=== PATIENT | female | born 1995 | race Caucasian/White ===

== ENCOUNTER → 2018-07-15 14:07 | Outpatient (CLI) | payer MEDICAID, SELFPAY ==
[2018-07-15 14:04] VITALS: BMI 41.0
[2018-07-15 14:53] LABS: Absolute Lymphocyte Count 2.04 X10^3/ul (0.83-4.51); Absolute Neutrophil Count 8.6 X10^3/uL (2.0-7.7); Basophil# 0.02 X10^3/uL; Basophil% 0.2 % (0-1); Eosinophil# 0.06 X10^3/uL; Eosinophils% 0.5 % (0-5); Hematocrit 41.8 % (37-47); Hemoglobin 13.7 g/dl (12.0-15.0); Lymphocyte # 2.04 X10^3/ul (4.0); Lymphocyte % 18.2 % (19-41); Mean Corp Hgb Conc 32.8 g/gl (32-36); Mean Corpuscular Hgb 30.6 pg (27.0-32.0); Mean Corpuscular Volume 93.5 fL (81-99); Mean Platelet Vol. 11.3 fl (6.2-12.0); Monocyte# 0.49 X10^3/uL; Monocyte% 4.4 % (0-10); Neutrophil # 8.57 X10^3/uL (2.7-7.7); Neutrophil % 76.5 % (47-70); Platelet Count 259 K/mm3 (150-450); RBC Distribution Width CV 14.1 % (11.6-14.6); RBC Distribution Width SD 46.5 fl (35.1-43.9); Red Blood Count 4.47 M/mm3 (4.2-5.4); White Blood Count 11.2 K/mm3 (4.4-11.0)
[2018-07-15 14:56] LABS: POSITIVE COUNT NO; POSITIVE DIFFERENTIAL NO; POSITIVE MORPHOLOGY NO
[2018-07-15 15:09] LABS: Glucose Challenge Gest 1H 50g 107 mg/dL (70-140)
[2018-07-15 16:15] LABS: HIV - WCH Non-Reactive (Nonreactive); Rubella IgG 16.8 IU/mL
[2018-07-15 17:32] LABS: Chlamydia Trachomatis by PCR Negative (Negative); Neisserai gonorrhoeae by PCR Negative (Negative); Probe Check PASS; Sample Adequacy Control PASS; Specimen Processing Control PASS
[2018-07-17 10:18] LABS: HEPATITIS B SURFACE AG Negative (Negative)
[2018-07-17 20:17] LABS: HPV Reflexed? NOT INDICATED
[2018-07-19 01:31] LABS: Rapid Plasmin Reagin (RPR) NONREACTIVE (NONREACTIVE)
== END ==
LOC: PAVLAB 14:12 → LABSPEC 15:00
PROVIDERS: Referring Provider Obstetrics & Gynecology; Visit Provider Obstetrics & Gynecology
DX: Z34.90 Encounter for supervision of normal pregnancy, unspecified, unspecified trimester (principal); Z12.4 Encounter for screening for malignant neoplasm of cervix
CPT/HCPCS: 36415; 82950; 85025; 86592; 86703; 86762; 86850; 86900; 87086; 87088; 87340; 87491; 87591; 87624; 88175; G0145

== ENCOUNTER → 2018-08-15 11:54 | Outpatient (CLI) | payer MEDICAID, SELFPAY ==
[2018-08-12 14:42] VITALS: BMI 41.0
== END ==
PROVIDERS: Referring Provider Nurse Practitioner Women's Health; Visit Provider Nurse Practitioner Women's Health
DX: Z34.82 Encounter for supervision of other normal pregnancy, second trimester (principal)
CPT/HCPCS: 36415

== ENCOUNTER 2018-11-04 08:37 | Emergency (ER) | payer MEDICAID, SELFPAY ==
[2018-10-18 14:33] VITALS: BMI 41.0
[2018-11-04 08:37] VITALS: BP 128/75; PULSE 102; RESP 17; TEMP 36.6; O2SAT 100; BMI 40.3
--- NOTE | 2018-11-04 09:13 | ED.VISSUMM ---
- ER Visit Summary Date of Service: 11/04/18 Chief Complaint: Abscess on buttock crease History of Present Illness: The patient is a 23 F currently 2425 weeks due date 02/19/2019. No other significant past medical or surgical history. Patient thinks she has an abscess on her buttock crease for the last 5 days. Increasing in size and pain. Denies any other fever or other symptoms. Physical Examination: Young female no acute distress. Vital signs are stable and afebrile. H EENT exam unremarkable. Lungs clear to auscultation. Heart regular rhythm no murmur. Abdomen soft and nontender. Gravid uterus. She is moving all 4 extremities. No edema. Back nontender. On the very anterior aspect of her buttock crease there is a 1 to 2cm area that is tender to palpation it is either an abscess or pilonidal cyst. It is fluctuant. There is no surrounding cellulitis. Currently no drainage. Neurologically she is awake and alert. Test Results: None Emergency Department Course and Treatment: Let will be applied to the area. Locally anesthetized with plain 1% lidocaine. Incised and drained using 11 blade scalpel. A 1 cm incision was able to express about 3 cc of pus and blood. Patient tolerated well. Wound was probed. And I placed about 3 inches of half-inch iodinated packing gauze. Instructed on wound care. Remove the gauze in 4 days. Even her first dose of Bactrim and Keflex here prior to discharge Treatment Plan: Bactrim p.o. for 10 days. Twice daily. Keflex for 10 days 4 times daily. Tylenol Motrin for pain. Warm soaks. Disposition: discharge Impression: Acute buttock abscess Incision and drainage by ER This note was generated with [employer] dictation software. It may contain incorrect words, spelling, and punctuation that were not noted in review of the chart prior to signing ED Disposition - Plan for ED Patient: Referrals: Care Physician,No Primary [Primary Care Provider] -
[2018-11-04] MEDS: Lidocaine/Epi/Tetracaine 50 ML 1 APPLIC TOPICAL (09:22)
--- NOTE | 2018-11-04 11:38 | ED.DEP ---
ED Disposition - Plan for ED Patient: Disposition: Home or Assisted Living Instructions: ABSCESS, Incision and Drainage Prescriptions: Sulfamethoxazole/Trimethoprim [Bactrim Ds Tablet] 1 ea PO BID #20 tab Prescription Printed Cephalexin [Keflex] 500 mg PO Q6 #40 cap Prescription Printed Referrals: Miles Monsivais MD [NON-STAFF] - 3-5 Days Additional Instructions: Warm soaks twice a day for 20 minutes. Tylenol and Motrin for pain. Keflex 1 pill 4 times a day for 10 days. Bactrim 1 pill twice a day for 10 days. Follow-up with your doctor this week. Pull the packing gauze out in 4 days on . If it falls out before that do not worry about it.
[2018-11-04 11:55] VITALS: BP 135/81; PULSE 71; RESP 15; O2SAT 98
[2018-11-04] MEDS: Smz/Tmp Ds Tablet 1 TABLET PO (11:56)
[2018-11-04] MEDS: Cephalexin 250 MG Capsule 500 MG PO (11:56)
== END 2018-11-04 12:03 | disposition home or self-care (01) ==
PROVIDERS: Emergency Provider Emergency Medicine
DX: O99.89 Other specified diseases and conditions complicating pregnancy, childbirth and the puerperium (principal); L02.31 Cutaneous abscess of buttock; Z3A.00 Weeks of gestation of pregnancy not specified
CPT/HCPCS: 10061; 99284

== ENCOUNTER → 2018-11-19 16:49 | Outpatient (CLI) | payer MEDICAID, SELFPAY ==
[2018-11-19 15:44] VITALS: BMI 40.3
[2018-11-19 17:22] LABS: Absolute Lymphocyte Count 1.98 X10^3/ul (0.83-4.51); Absolute Neutrophil Count 10.9 X10^3/uL (2.0-7.7); Basophil# 0.02 X10^3/uL; Basophil% 0.1 % (0-1); Eosinophil# 0.06 X10^3/uL; Eosinophils% 0.4 % (0-5); Hematocrit 36.2 % (37-47); Lymphocyte # 1.98 X10^3/ul (4.0); Lymphocyte % 14.6 % (19-41); Mean Corp Hgb Conc 33.1 g/gl (32-36); Mean Corpuscular Hgb 31.4 pg (27.0-32.0); Mean Corpuscular Volume 94.8 fL (81-99); Mean Platelet Vol. 11.1 fl (6.2-12.0); Monocyte# 0.65 X10^3/uL; Monocyte% 4.8 % (0-10); Neutrophil # 10.85 X10^3/uL (2.7-7.7); Neutrophil % 79.8 % (47-70); Platelet Count 274 K/mm3 (150-450); RBC Distribution Width CV 13.7 % (11.6-14.6); RBC Distribution Width SD 45.2 fl (35.1-43.9); Red Blood Count 3.82 M/mm3 (4.2-5.4); White Blood Count 13.6 K/mm3 (4.4-11.0)
[2018-11-19 17:23] LABS: POSITIVE COUNT NO; POSITIVE DIFFERENTIAL NO; POSITIVE MORPHOLOGY NO
[2018-11-19 17:37] LABS: Glucose Challenge Gest 1H 50g 113 mg/dL (70-140)
== END ==
PROVIDERS: Referring Provider Obstetrics & Gynecology; Visit Provider Obstetrics & Gynecology
DX: O09.90 Supervision of high risk pregnancy, unspecified, unspecified trimester (principal); Z3A.00 Weeks of gestation of pregnancy not specified
CPT/HCPCS: 36415; 82950; 85025

== ENCOUNTER → 2018-12-24 12:19 | Outpatient (CLI) | payer MEDICAID, SELFPAY ==
[2018-12-10 16:17] VITALS: BMI 40.3
--- NOTE | 2018-12-24 12:21 | US_ITS ---
STUDY: SECOND AND THIRD TRIMESTER OBSTETRICAL ULTRASOUND - LIMITED REASON FOR EXAM: Female, 23 years old. Routine survey. LMP: Asif second 2018. PRIOR ULTRASOUND: None. TECHNIQUE: Transabdominal TECHNICAL QUALITY: Adequate. FINDINGS: There is a single intrauterine fetus. The fetus is in a cephalic presentation. There is demonstrated cardiac activity with a heart rate of 152 bpm. There is a normal amniotic fluid volume. The largest amniotic fluid pocket measures 5.8 x 3.2 cm. The amniotic fluid index (CASEY) is 18.31 cm. The placenta is anterior in location and is not low lying. There are Grade 1 placental changes. The cervix measures 3.2 cm cm in length. BIOMETRY: BPD: 7.8 cm: 31 weeks, 3 days HC: 29.11 cm: 32 weeks, 1 days AC: 28.19 cm: 32 weeks, 2 days FL: 6.18 cm: 32 weeks, 1 days Age by LMP: 31 weeks, 6 days. KATLYN by LMP: February 19, 2019. age by prior US: 31 weeks, 2 days. KATLYN by prior US: February 13, 2019. age by current US: 32 weeks, 0 days. KATLYN by current US: February 18, 2019. Estimated weight: 1897 grams, +/- 277 grams, 46 percentile. US/OB Limited With Biometrics IMPRESSION: Single live intrauterine gestation with a mean gestational age of 31 weeks and 2 days. The measurements obtained today fall within the normal expected range. Electronically Signed: Ethan Kendrick, at 15:50 EDT , Service support ,
== END ==
PROVIDERS: Referring Provider Obstetrics & Gynecology; Visit Provider Obstetrics & Gynecology
DX: O09.90 Supervision of high risk pregnancy, unspecified, unspecified trimester (principal); O99.210 Obesity complicating pregnancy, unspecified trimester; O99.330 Smoking (tobacco) complicating pregnancy, unspecified trimester; Z3A.31 31 weeks gestation of pregnancy
CPT/HCPCS: 76816

== ENCOUNTER 2019-01-07 16:35 | Outpatient (CLI) | payer MEDICAID, SELFPAY ==
[2019-01-07 15:33] VITALS: BMI 41.6
[2019-01-07 16:52] VITALS: BMI 41.7
[2019-01-07] MEDS: Dextrose 5%-Lactated Ringers 1,000 ML 999 ML IV (17:06)
[2019-01-07 17:18] LABS: Color, Urine Yellow (Yellow); Glucose, Dipstick Normal (Normal); Leukocyte Esterase-Dipstick 25 /ul (Negative); Nitrite-Dipstick Negative (Negative); Occult Blood-Urine Negative /ul (Negative); Protein-Dipstick 30 mg/dl (Negative); Specific Gravity, Urine 1.015 (1.002-1.030); Urine Clarity Cloudy (Clear); Urine Urobilinogen 1 mg/dl (Normal); Urine pH 6.5 (5.0 - 8.0)
[2019-01-07 17:22] LABS: Absolute Lymphocyte Count 2.17 X10^3/uL (0.83-4.51); Absolute Neutrophil Count 12.7 X10^3/uL (2.0-7.7); Basophil# 0.02 X10^3/uL; Basophil% 0.1 % (0-1); Eosinophil# 0.03 X10^3/uL; Eosinophils% 0.2 % (0-5); Hematocrit 37.4 % (37-47); Hemoglobin 12.5 g/dL (12.0-15.0); Lymphocyte # 2.17 X10^3/ul (4.0); Lymphocyte % 13.8 % (19-41); Mean Corp Hgb Conc 33.4 g/dL (32-36); Mean Corpuscular Hgb 31.5 pg (27.0-32.0); Mean Corpuscular Volume 94.2 fL (81-99); Mean Platelet Vol. 11.1 fl (6.2-12.0); Monocyte% 4.5 % (0-10); NRBC Flagged by Analyzer 0 % (0-5); Neutrophil % 80.7 % (47-70); Platelet Count 266 K/mm3 (150-450); RBC Distribution Width CV 12.7 % (11.6-14.6); Red Blood Count 3.97 M/mm3 (4.2-5.4); White Blood Count 15.7 K/mm3 (4.4-11.0)
[2019-01-07 17:24] LABS: Ketone-Dipstick 150 mg/dl (Negative); Urine Bilirubin Dipstick 1 mg/dL (Negative)
[2019-01-07 17:41] LABS: ALB/GLOB Ratio 0.6 RATIO (0.9-2.4); AST(SGOT) 11 U/L (15-37); Alanine Aminotransfer ALT/SGPT 18 U/L (13-56); Albumin, Serum 2.7 g/dL (3.2-5.0); Alkaline Phosphatase 81 U/L (45-117); Anion Gap 7 (5-15); BUN 7 mg/dL (7-18); BUN/Creat Ratio 10.5 RATIO (10-20); Calcium,Total 8.9 mg/dL (8.5-10.1); Chloride 107 mmol/L (98-107); Creatinine, Serum 0.67 mg/dL (0.55-1.02); EST Glomerular Filtration Rate 114 mL/min (>60); Est Glom Filt Rate - Afr Amer 137 mL/min (>60); Estimated Creatinine Clearance 120.16 ml/min; Globulin 4.5 g/dL (2.2-4.2); Glucose 82 mg/dL (74-106); Potassium 3.6 mmol/L (3.5-5.1); Protein, Total 7.2 g/dL (6.4-8.2); Sodium Level 137 mmol/L (136-145)
[2019-01-07] MEDS: Dextrose 5%-Lactated Ringers 1,000 ML 200 ML IV (17:43)
[2019-01-07 17:48] LABS: Mucous, Urine 3+ /hpf (<or=2+); Squamous Epithelial Cells - UA 0-5 SEEN /hpf (5-10)
[2019-01-07 17:49] LABS: Hyaline Cast 0-5 SEEN /lpf (0-5)
[2019-01-07 17:50] LABS: Bacteria RARE /hpf (None Seen); Calcium Oxalate Crystals Ur RARE /hpf (<or=2+); White Blood Cells 0-5 SEEN /hpf (0-5)
[2019-01-07 17:51] LABS: Red Blood Cells-Urine 0-5 SEEN /hpf (0-5)
--- NOTE | 2019-01-08 05:38 | OB.TRI.HP_ITS ---
- Problem List (1) Non-reactive NST (non-stress test) Status: Acute History of Present Illness Date of Service: 01/07/19 Was patient seen by the physician?: Yes Reason For Visit: EXTENDED MONITOR Final KATLYN Source: US <20 weeks Allergies No Known Allergies Allergy (Verified 01/07/19 15:36) Laboratory Studies: Laboratory Tests 01/07/19 01/07/19 01/07/19 Range/Units 16:50 16:50 16:50 WBC 15.7 H (4.4-11.0) K/mm3 RBC 3.97 L (4.2-5.4) M/mm3 Hgb 12.5 (12.0-15.0) g/dL Hct 37.4 (37-47) % MCV 94.2 (81-99) fL MCH 31.5 (27.0-32.0) pg MCHC 33.4 (32-36) g/dL RDW Std Deviation 44.0 H (35.1-43.9) fl RDW Coeff of Melvin 12.7 (11.6-14.6) % Plt Count 266 (150-450) K/mm3 MPV 11.1 (6.2-12.0) fl Immature Gran % (Auto) 0.700 (0.0-0.9) % Neut % (Auto) 80.7 H (47-70) % Lymph % (Auto) 13.8 L (19-41) % [place] % (Auto) 4.5 (0-10) % Eos % (Auto) 0.2 (0-5) % Baso % (Auto) 0.1 (0-1) % Absolute Neuts (auto) 12.7 H (2.0-7.7) X10^3/uL Absolute Lymphs (auto) 2.17 (0.83-4.51) X10^3/uL Nucleated RBC % 0 (0-5) % Sodium 137 (136-145) mmol/L Potassium 3.6 (3.5-5.1) mmol/L Chloride 107 (98-107) mmol/L Carbon Dioxide 23.0 (21.0-32.0) mmol/L Anion Gap 7 (5-15) BUN 7 (7-18) mg/dL Creatinine 0.67 (0.55-1.02) mg/dL Estim Creat Clear Calc 120.16 ml/min Est GFR (MDRD) Af Amer 137 (>60) mL/min Est GFR (MDRD) Non-Af 114 (>60) mL/min BUN/Creatinine Ratio 10.5 (10-20) RATIO Glucose 82 (74-106) mg/dL Calcium 8.9 (8.5-10.1) mg/dL Total Bilirubin 0.30 (0.20-1.00) mg/dL AST 11 L (15-37) U/L ALT 18 (13-56) U/L Alkaline Phosphatase 81 (45-117) U/L Total Protein 7.2 (6.4-8.2) g/dL Albumin 2.7 L (3.2-5.0) g/dL Globulin 4.5 H (2.2-4.2) g/dL Albumin/Globulin Ratio 0.6 L (0.9-2.4) RATIO Urine Color Yellow (Yellow) Urine Clarity Cloudy (Clear) Urine pH 6.5 (5.0 - 8.0) Ur Specific Ava 1.015 (1.002-1.030) Urine Protein 30 H (Negative) mg/dl Urine Glucose (UA) Normal (Normal) mg/dl Urine Ketones 150 H (Negative) mg/dl Urine Occult Blood Negative (Negative) /ul Urine Nitrite Negative (Negative) Urine Bilirubin 1 H (Negative) mg/dL Urine Urobilinogen 1 H (Normal) mg/dl Ur Leukocyte Esterase 25 H (Negative) /ul Urine RBC 0-5 SEEN (0-5) /hpf Urine WBC 0-5 SEEN (0-5) /hpf Ur Squamous Epith Cells 0-5 SEEN (5-10) /hpf Calcium Oxalate Crystal RARE (<or=2+) /hpf Urine Bacteria RARE (None Seen) /hpf Hyaline Casts 0-5 SEEN (0-5) /lpf Urine Mucus 3+ (<or=2+) /hpf NST - FHR Rate Baby A Baseline: 140 Variability:: Moderate Accelerations:: 15 x 15 Decelerations:: None NST Reactive:: Yes FHR Category:: Category I Uterine Activity:: irritability Impression/Plan nonreactive NST in office- extended monitoring and uterine irritatbility- reactive no decels and no labor. dc home kick counts Multi Select Codes - Urinary/Genital Urinary/Genital CPT Codes: 02556-26 non-stress test Interp
== END 2019-01-07 18:00 | disposition home or self-care (01) ==
LOC: WPOUT 16:41 → WP 01-08 10:26
PROVIDERS: Referring Provider Obstetrics & Gynecology; Visit Provider Obstetrics & Gynecology
DX: O36.8990 Maternal care for other specified fetal problems, unspecified trimester, not applicable or unspecified (principal); Z3A.00 Weeks of gestation of pregnancy not specified
CPT/HCPCS: 96365; 36415; 59025; 59050; 80053; 81001; 85025; 99218; G0378

== ENCOUNTER → 2019-01-14 17:08 | Outpatient (CLI) | payer MEDICAID, SELFPAY ==
[2019-01-14 15:34] VITALS: BMI 41.8
[2019-01-14 18:50] LABS: Protein:Creat Ratio 141 mg/g CRE (0-200)
== END ==
PROVIDERS: Referring Provider Obstetrics & Gynecology; Visit Provider Obstetrics & Gynecology
DX: O12.10 Gestational proteinuria, unspecified trimester (principal)
CPT/HCPCS: 82570; 84156

== ENCOUNTER → 2019-01-24 16:37 | Outpatient (CLI) | payer MEDICAID, SELFPAY ==
[2019-01-21 15:56] VITALS: BMI 41.8
--- NOTE | 2019-01-24 16:39 | US_ITS ---
STUDY: SECOND AND THIRD TRIMESTER OBSTETRICAL ULTRASOUND-LIMITED REASON FOR EXAM: Female, 23 years old routine survey LMP: 05/15/2018 TECHNIQUE: Transabdominal TECHNICAL QUALITY: Adequate. PRIOR ULTRASOUND: 12/24/2018 FINDINGS: There is a single intrauterine fetus. The fetus is in a cephalic presentation. There is demonstrated cardiac activity with a heart rate of 150 bpm. There is a normal amniotic fluid volume. The largest amniotic fluid pocket measures 5.9 cm. The amniotic fluid index (CASEY) is 15.3 cm. The placenta is anterior in location and is not low lying. There are Grade 3 placental changes. The cervix was not visualized BIOMETRY: BPD: 8.95 cm: 36 weeks, 2 days HC: 33.28 cm: 38 weeks, 0 days AC: 31.97 cm: 36 weeks, 0 days FL: 7.06 cm: 36 weeks, 2 days age by current US: 36 weeks, 5 days. KATLYN by current US: 02/16/2019. Estimated weight: 2883 grams, +/- 421 grams, %. age by prior US: 36 weeks, 3 days. KATLYN by prior US: 02/18/2019. Age by LMP: 36 weeks, 2 days. KATLYN by LMP: 02/19/2019. US/OB Limited With Biometrics IMPRESSION: Single live intrauterine at 36 weeks, 5 days by current ultrasound KATLYN of 02/16/2019. Heart rate 150 bpm. No suspicious sonographic findings, normal growth noted since the previous study. Electronically Signed: Guille Gutierres MD at 9:48 EDT , Service support ,
== END ==
PROVIDERS: Referring Provider Obstetrics & Gynecology; Visit Provider Obstetrics & Gynecology
DX: O99.213 Obesity complicating pregnancy, third trimester (principal); Z3A.00 Weeks of gestation of pregnancy not specified
CPT/HCPCS: 76816

== ENCOUNTER 2019-01-25 17:35 | Outpatient (CLI) | payer MEDICAID, SELFPAY ==
[2019-01-22 05:14] VITALS: BMI 40.3
[2019-01-25 17:53] VITALS: BMI 41.6
[2019-01-25 18:37] LABS: Bacteria 0 SEEN /hpf (None Seen); Color, Urine Yellow (Yellow); Glucose, Dipstick Normal (Normal); Ketone-Dipstick Negative (Negative); Leukocyte Esterase-Dipstick Negative /ul (Negative); Mucous, Urine 0 SEEN /hpf (<or=2+); Nitrite-Dipstick Negative (Negative); Occult Blood-Urine Negative /ul (Negative); Protein-Dipstick Negative (Negative); Red Blood Cells-Urine 0 SEEN /hpf (0-5); Urine Bilirubin Dipstick Negative (Negative); Urine Clarity Cloudy (Clear); Urine Urobilinogen Normal (Normal)
[2019-01-25 19:00] LABS: Amorphous Sediment 3+; Squamous Epithelial Cells - UA 0-5 SEEN /hpf (5-10)
[2019-01-25 19:02] LABS: Coarse Granular Cast 0-5 SEEN /lpf (0-5 /lpf)
[2019-01-25 19:04] LABS: Transitional Epithelial - Ur 0-5 SEEN /hpf (0-5); White Blood Cells 0-5 SEEN /hpf (0-5)
--- NOTE | 2019-01-29 04:36 | OB.TRI.HP_ITS ---
- Problem List (1) Pelvic pressure in female Status: Acute History of Present Illness Date of Service: 01/25/19 Was patient seen by the physician?: No Reason For Visit: PELVIC PRESSURE Final KATLYN Source: US <20 weeks History of Present Illness: pelvic pressure ctx Allergies No Known Allergies Allergy (Verified 01/28/19 15:45) Laboratory Studies: Laboratory Tests 01/25/19 Range/Units 18:30 Urine Color Yellow (Yellow) Urine Clarity Cloudy (Clear) Urine pH 8.0 (5.0 - 8.0) Ur Specific Reading 1.020 (1.002-1.030) Urine Protein Negative (Negative) mg/dl Urine Glucose (UA) Normal (Normal) mg/dl Urine Ketones Negative (Negative) mg/dl Urine Occult Blood Negative (Negative) /ul Urine Nitrite Negative (Negative) Urine Bilirubin Negative (Negative) mg/dL Urine Urobilinogen Normal (Normal) mg/dl Ur Leukocyte Esterase Negative (Negative) /ul Urine RBC 0 SEEN (0-5) /hpf Urine WBC 0-5 SEEN (0-5) /hpf Ur Squamous Epith Cells 0-5 SEEN (5-10) /hpf Ur Transition Epith Cell 0-5 SEEN (0-5) /hpf Amorphous Sediment 3+ Urine Bacteria 0 SEEN (None Seen) /hpf Coarse Granular Casts 0-5 SEEN (0-5 /lpf) /lpf Urine Mucus 0 SEEN (<or=2+) /hpf NST - FHR Rate Baby A Baseline: 140 Variability:: Moderate Decelerations:: Late NST Reactive:: Yes FHR Category:: Category I Uterine Activity:: irregular Impression/Plan pelvic pressure reactive nst dc home labor precuations Multi Select Codes - Urinary/Genital Urinary/Genital CPT Codes: 20811-55 non-stress test Interp
== END 2019-01-25 19:19 | disposition home or self-care (01) ==
LOC: WPOUT 17:42 → WP 17:43
PROVIDERS: Visit Provider Obstetrics & Gynecology
DX: O26.899 Other specified pregnancy related conditions, unspecified trimester (principal); R10.2 Pelvic and perineal pain; Z3A.00 Weeks of gestation of pregnancy not specified
CPT/HCPCS: 59025; 59050; 81001; 99218; G0378

== ENCOUNTER → 2019-01-28 17:40 | Outpatient (CLI) | payer MEDICAID, SELFPAY ==
[2019-01-28 15:45] VITALS: BMI 41.6
== END ==
PROVIDERS: Visit Provider Nurse Practitioner Women's Health
DX: O09.90 Supervision of high risk pregnancy, unspecified, unspecified trimester (principal); Z3A.00 Weeks of gestation of pregnancy not specified
CPT/HCPCS: 87081

== ENCOUNTER 2019-02-15 09:32 | Outpatient (CLI) | payer MEDICAID, SELFPAY ==
[2019-02-14 09:15] VITALS: BMI 41.4
[2019-02-15 09:36] VITALS: BMI 41.7
[2019-02-15 10:04] LABS: ROM Internal Control Test YES-OK TO RESULT pt. (Internal QC); ROM Patient Test Negative (Negative); Record Kit Lot#, ROM+ J8255
--- NOTE | 2019-02-17 00:59 | OB.TRI.PN ---
Progress Notes Date of Service: 02/15/19 Progress Note: Patient presents for triage evaluation secondary to tractions. Patient that she had loss of fluid for clear fluid FHT: 140 Moderate variability reactive no decelerations category I tracing [place]: Irregular contractions Assessment and plan: False labor reactive NST, reassuring maternal and status patient discharged to home to follow-up scheduled. See problem list details for additional plan information. Laboratory Studies: Laboratory Tests 02/15/19 Range/Units 09:30 Vag Amniotic Fld Detect Negative (Negative) Multi Select Codes - Urinary/Genital Urinary/Genital CPT Codes: 13268-01 non-stress test Interp
== END 2019-02-15 11:00 | disposition home health service (06) ==
LOC: WPOUT 09:33 → WP 09:34
PROVIDERS: Referring Provider Obstetrics & Gynecology; Visit Provider Obstetrics & Gynecology
DX: O47.9 False labor, unspecified (principal); Z3A.00 Weeks of gestation of pregnancy not specified
CPT/HCPCS: 59025; 59050; 84112; 99218; G0378

== ENCOUNTER 2019-02-16 23:13 | Inpatient (IN) | payer MEDICAID, SELFPAY ==
[2019-02-15 09:36] VITALS: BMI 41.7
[2019-02-16 23:45] VITALS: BMI 41.4
[2019-02-16] MEDS: Lactated Ringers 500 ML 999 ML IV (23:45)
[2019-02-16 23:59] LABS: Absolute Lymphocyte Count 2.88 X10^3/uL (0.83-4.51); Absolute Neutrophil Count 8.7 X10^3/uL (2.0-7.7); Basophil# 0.03 X10^3/uL; Basophil% 0.2 % (0-1); Eosinophil# 0.06 X10^3/uL; Eosinophils% 0.5 % (0-5); Hematocrit 35.7 % (37-47); Lymphocyte # 2.88 X10^3/ul (4.0); Lymphocyte % 23.2 % (19-41); Mean Corp Hgb Conc 33.6 g/dL (32-36); Mean Corpuscular Hgb 31.2 pg (27.0-32.0); Mean Corpuscular Volume 92.7 fL (81-99); Mean Platelet Vol. 11.1 fl (6.2-12.0); Monocyte% 5.6 % (0-10); NRBC Flagged by Analyzer 0 % (0-5); Neutrophil # 8.69 X10^3/uL (2.7-7.7); Neutrophil % 69.9 % (47-70); Platelet Count 255 K/mm3 (150-450); RBC Distribution Width CV 13.4 % (11.6-14.6); RBC Distribution Width SD 45.1 fl (35.1-43.9); Red Blood Count 3.85 M/mm3 (4.2-5.4); White Blood Count 12.4 K/mm3 (4.4-11.0)
[2019-02-17] MEDS: Lactated Ringers 1,000 ML 200 ML IV (00:15)
--- NOTE | 2019-02-17 00:40 | HP.PCM_ITS ---
- Problem List (1) Active labor at term Status: Acute (2) Influenza vaccination declined Status: Acute Comment: 02/14/2019 (3) Obesity affecting Status: Acute Qualifiers: Comment: bmi over 40, 1 tm glucola, nutrition discussed. weekly nsts and q 4 week US after 32 weeks; fu US views sufficient. testing 1x wk and daily kick counts. Normal growth/CASEY on US (4) Status: Acute Qualifiers: Comment: genetic, carrier, and ntd nl. US normal. (5) Supervision of high risk , antepartum Status: Acute Comment: PRR KATLYN 02/19/19 girl Liang Sanders Pako (6) Tobacco use affecting , antepartum Status: Acute Comment: 3/day, recommend cessation History and Physical Date of Admission: 02/17/19 Intake Vital Signs 02/14/19 Body Mass Index (BMI) 41.4 02/14/19 Height 5 ft 6 in 02/14/19 Weight: 257 lb 02/14/19 Body Mass Index (BMI) 41.4 02/14/19 Blood Pressure 128/72 H Intake Visit Reasons: est ob 39w/NST Public Health Technologist Required: No Is patient in pain?: No Allergies No Known Allergies Allergy (Verified 02/14/19 09:12) Medications Vits [Prenatabs FA] 1 tab PO DAILY 08/31/14 [History Confirmed 02/14/19] Last Menstral Period: 05/14/18 Zika: Zika virus screening: Negative : No [facility] Social History (Updated 02/14/19 @ 10:57 by Sandy Barriga MD) Smoking Status: Never smoker alcohol intake: never substance use type: does not use caffeine: Yes what type of physical activity do you participate in: walking seatbelt use: always do you feel safe at home: Yes additional social history: Taylor Gore Patient works at [employer] History 2 Elective abortions Hx Para 1 Spontaneous abortions Hx # Term Pregnancies Ectopic pregnancies Hx # Pregnancies Multiple births # of living children Past Pregnancies Del. Date Name GA/Weeks Outcome Route Bth Weight Gen Labor Lgth Anesthesia Del Locatn Provider FOB Unknown 2014 Madalynn live - full term NS VD Female [facility] Ariel Peterson HPI est ob 39w/NST: Details: PRECIOUS SUTTON is a 23 year old who presents for contractions. she is IAL 5 cm dilated. she is also ruptured with clear fluid. OB Visit KATLYN Calculator Estimated Delivery Date Method Current WG Current Estimate 02/19/19 Ultrasound #1 39w 2d Other Estimates 02/18/19 LMP (Uncertain) 39w 3d Expected Delivery Route/Plan Labor Preferences- labor support person: Pako, mom- Carin, sister in law- Bianca pain management: epidural possibly cut cord/dad catch: [] : [] PP control planned: [] discussed possible routes of delivery and associated risks: [] special requests: [] Specific Issue/Plans flu vaccine: declines tdap vaccine: given rhogam: na LARC form signed: declined Problem list reviewed and updated with the most current plan of care details and appropriate orders placed. Relevant counseling for the gestational age provided. Continue routine care and follow up unless otherwise noted in visit notes/problem list details Initial Weight: Not Recorded Date EGA Weight BP Urine Prot Glucose FHR FuHt Pres Mov CTX Dilation Effaced St Visit Note 08/12/18 12w 5d 253 lb 122/76 Negative Negative 150 no vb cramping, desires sequential screen 09/10/18 16w 6d 254 lb 2 oz 106/72 Negative Negative 162 Active Confirms FM. No VB, LOF 10/18/18 22w 2d 259 lb 6 oz 120/62 Negative Negative 156 22 Active absent Good FM. NO VB, LOF 11/19/18 26w 6d 260 lb 6 oz 138/76 Negative Negative 135 26 Active no vb lof good fm n oregular ctx cbc gct tdap 12/10/18 29w 6d 260 lb 90/64 Negative Negative 135 34 Active absent no vb lof good fm n oregular ctx 12/31/18 32w 6d 261 lb 110/84 135 no vb lof good fm no regular ctx 01/07/19 33w 6d 258 lb 122/78 160 Active frequent elevated heart rate- to l and d for evaluation. co some contractions. 01/14/19 34w 6d 259 lb 8 oz 106/60 1+ Negative 150 Active frequent irritability contractions no vb lof normal bps 01/21/19 35w 6d 100/72 140 Active frequent no vb lof 01/28/19 36w 6d 258 lb 6 oz 106/60 Negative Negative 145 37 Cephalic Active occasional 1.20 -3 No VB, LOF 02/14/19 39w 2d 257 lb 128/72 Negative Negative Visit Notes Visit Date: 02/14/19 ??No visit notes to display Visit Date: 01/28/19 ??No VB, LOF ??DINORA Hernandez on 01/28/19 Visit Date: 01/21/19 ??no vb lof ??Sandy Barriga MD on 01/22/19 Visit Date: 01/14/19 ??irritability contractions no vb lof normal bps ??Sandy Barriga MD on 01/15/19 Visit Date: 01/07/19 ??elevated heart rate- to l and d for evaluation. co some contractions. ??Sandy Barriga MD on 01/13/19 Visit Date: 12/31/18 ??no vb lof good fm no regular ctx ??Sandy Barriga MD on 01/05/19 Visit Date: 12/10/18 ??no vb lof good fm n oregular ctx ??Sandy Barriga MD on 12/10/18 Visit Date: 11/19/18 ??no vb lof good fm n oregular ctx cbc gct tdap ??Sandy Barriga MD on 11/19/18 Visit Date: 10/18/18 ??Good FM. NO VB, LOF ??DINORA Hernandez on 10/18/18 Visit Date: 09/10/18 ??Confirms FM. No VB, LOF ??DINORA Hernandez on 09/10/18 Visit Date: 08/12/18 ??no vb cramping, desires sequential screen ??Sandy Barriga MD on 08/12/18 [facility] First Trimester First Trimester: Desire for , Alcohol, Tobacco Cessation, Illicit/Recreational Drug/Substance Use, Intimate Partner Violence, Barriers to care, Unstable Housing, Communication Barriers, Environmental/Work Hazards, Anticipated Course of Care, Toxoplasmosis Precations, Use of Any medications, Sexual activity, Exercise, Dental Care, Sauna/Hot tub use, Seat Belt use, Childbirth classes/Hospital facilities, , Travel, Indications for US and Screening for Aneuploidy Second Trimester Second Trimester: Signs and Symptoms of Labor, Selecting a care provider, Reproductive Life Planning, Care Planning, Tobacco Cessation, Depression/Anxiety and Intimate Partner Violence Third Trimester Third Trimester: Pain Management Plans, Labor support person(s), Immediate Larc, Movement Monitoring and Infant Feeding Yes ; discussed Trial of Labor after Counseling or discussed Circumcision preference Diagnostics Diagnostics Diagnostics Hgb 12.5 g/dL (12.0-15.0) 01/07/19 Hct 37.4 % (37-47) 01/07/19 Details: HIV: Urine Culture: Sequential Screen: NIPT Screen: ROS Const Reports system reviewed and no additional complaints, except as docu Card Reports system reviewed and no additional complaints, except as docu Resp Reports system reviewed and no additional complaints, except as docu GI Reports system reviewed and no additional complaints, except as docu, Reports nausea Reports system reviewed and no additional complaints, except as docu Musc Reports system reviewed and no additional complaints, except as docu Exam Const General: cooperative, healthy appearing, comfortable, anxious HENMT Head: normal to inspection Nose: external nose normal Face and sinus: normal facial exam Neck Neck: normal visual inspection, full ROM, no lymphadenopathy Thyroid: thyroid normal Chest Chest palpation & inspection: normal inspection of the chest Resp Effort & Inspection: normal respiratory effort GI Inspection: normal to inspection Palpation: soft, other (gravid uterus) Other: infant vertex and appropriate size for gestational age Other: Cervical Exam: Extrem General: pedal edema Office Procedures OB NST Non-Stress Test Indications for Monitoring: Yes BMI >40 Heart Rate Baseline: 130 Heart Rate Variability: moderate Movement: Present Heart Rate Accelerations: Present Decelerations: Absent Contractions: Absent Impression: Yes Reactive Non-Stress Test Results [id number] Office Urine Glucose Negative Last Edit by Belem Jernigan on 02/14/19 09:14 Office Urine Protein Negative Last Edit by Belem Jernigan on 02/14/19 09:14 Assessment & Plan Problems 1. Supervision of high risk , antepartum O09.90 2. 39 weeks gestation of Z3A.39 3. Tobacco use affecting , antepartum O99.330 4. Obesity affecting in third trimester O99.213 5. Non-reactive NST (non-stress test) O28.8 6. Pelvic pressure in female R10.2 7. Influenza vaccination declined Z28.21 Orders Patient presents IAL admit expectant managment Pain management: plans epidural. GBS negative. Management of any complications: none I have reviewed the [facility] and made any clinically relevant updates. Orders: POC Urinalysis 2 Dip (Clinic) Today OB NST Today O09.90, O99.210, O99.330 Coding Level of Care Code Off vis,est,level 3 Diagnoses Supervision of high risk , antepartum O09.90 39 weeks gestation of Z3A.39 ??Weeks of gestation: 39 weeks Tobacco use affecting , antepartum O99.330 Obesity affecting in third trimester O99.213 ??Trimester: third trimester Non-reactive NST (non-stress test) O28.8 Pelvic pressure in female R10.2 Influenza vaccination declined Z28.21 Additional Codes Non-Stress Test (04644)
[2019-02-17] MEDS: fentaNYL-bupivacaine (epidural) 100 ML BAG EPIDURAL (00:46)
[2019-02-17] MEDS: Lactated Ringers 500 ML 999 ML IV (01:31)
[2019-02-17] MEDS: Oxytocin 30 units/NS 500 ml 30 UNITS/500 ML IV.SOLN 334 UNITS IV (02:33)
--- NOTE | 2019-02-17 02:49 | PCM.OPRPT ---
Problem List (1) Active labor at term Status: Acute (2) Influenza vaccination declined Status: Acute Comment: 02/14/2019 (3) Obesity affecting Status: Acute Qualifiers: Comment: bmi over 40, 1 tm glucola, nutrition discussed. weekly nsts and q 4 week US after 32 weeks; fu US views sufficient. testing 1x wk and daily kick counts. Normal growth/CASEY on US (4) Status: Acute Qualifiers: Comment: genetic, carrier, and ntd nl. US normal. (5) Supervision of high risk , antepartum Status: Acute Comment: PRR KATLYN 02/19/19 girl Liang Sanders Pako (6) Tobacco use affecting , antepartum Status: Acute Comment: 3/day, recommend cessation Vaginal Delivery Maternal Presentation: Active Labor ial Amniotic Membrane Rupture Type: Spontaneous at home Amniotic Fluid Description: Clear Final KATLYN: 02/19/19 Gestational age: 39 Weeks and 5 Days Date of Procedure: 02/17/19 Pre-Operative Diagnosis: ial Post-Operative Diagnosis: same Surgery/ Procedure Performed: Spontaneous Vaginal Delivery Type of Anesthesia: Epidural Description of Procedure: Patient began pushing and delivered the head in the MARIANO presentation. The head was delivered atraumatically and a loose nuchal cord ?1 was identified and the delivered through. The anterior and posterior shoulders delivered without complication followed by the rest of the and the was placed on the maternal abdomen. Delayed cord clamping was employed for approximately 60 seconds. Cord was clamped and cut and gentle traction was applied to the cord and the placenta delivered spontaneously immediately following it was noted to be intact with three-vessel cord. The perineum and vagina were inspected and noted to have no laceration. EBL was 100 cc. Patient and tolerated delivery well. Presentation: MARIANO Placental Delivery Description: Spontaneous Placenta Disposition: [facility] Cord Vessel Description: 3 Vessels Nuchal Cord Compression: With compression Cord Entanglement: Around neck x 1, tight Estimated Blood Loss: 100 A gender: Female (1 minute): 8 (5 minute): 9 Episiotomy Description: None Laceration: None Medications given after delivery: IV Pitocin Complications: None
[2019-02-17] MEDS: 0.9% Saline Lock 10 ML Syringe IV (05:20)
[2019-02-17 08:00] VITALS: BP 107/57; PULSE 67; RESP 20; TEMP 36.4; O2SAT 99
[2019-02-17] MEDS: Naproxen 250 MG Tablet 500 MG PO (09:42)
[2019-02-17 12:00] VITALS: BP 105/58; PULSE 65; TEMP 35.9; O2SAT 95
[2019-02-17] MEDS: Acetaminophen 500 MG Tablet 1000 MG PO (13:50)
[2019-02-17 16:25] VITALS: BP 107/58; PULSE 64; TEMP 36.1; O2SAT 97
[2019-02-17 20:00] VITALS: BP 115/56; PULSE 60; RESP 16; TEMP 36.6
[2019-02-18 01:02] VITALS: BP 115/74; PULSE 68; RESP 16; TEMP 36.8
[2019-02-18] MEDS: Naproxen 250 MG Tablet 500 MG PO (05:39)
[2019-02-18] MEDS: oxyCODONE 5 MG Tablet PO ×2 (07:29→14:16)
--- NOTE | 2019-02-18 07:58 | PCM.PN.OB ---
Patient Problems: Active and Suspected Problems (Last Reviewed 02/14/19 @ 09:13 by Belem Jernigan) Active labor at term (Acute) Subjective: doing well no complaints pain controlled no CP SOB N V ambulating well tolerating po lochia moderate, going well - Physical Exam General: Alert, Oriented x3 Abdomen: Soft, Non Tender, - - FF below U Vital Signs Temp Pulse Resp BP Pulse Ox 98.3 F 68 16 115/74 97 02/18/19 01:02 02/18/19 01:02 02/18/19 01:02 02/18/19 01:02 02/17/19 16:25 Oxygen Delivery Method Room Air Weight: 257 lb Body Mass Index (BMI) 41.4 Intake and Output for Last 24 Hours 02/16/19 02/17/19 02/18/19 23:59 23:59 23:59 Intake Total 1859.50 / 1859.50 Output Total 800 / 800 Balance 1059.50 / 1059.50 Medical Necessity - Tobacco Use Smoking Status: Former smoker Assessment/Plan All Active Problems (Last Reviewed 02/14/19 @ 09:13 by Belem Jernigan) Active labor at term (Acute) Influenza vaccination declined (Acute) Obesity affecting (Acute) Tobacco use affecting , antepartum (Acute) (Acute) Supervision of high risk , antepartum (Acute) Non-reactive NST (non-stress test) (Resolved) Pelvic pressure in female (Resolved) s/p PPD # 1 1. routine post delivery care 2. breast feeding- support given 3. rh positive 4. rubella immune 5. home today
--- NOTE | 2019-02-18 07:59 | DCINST_ITS ---
Additional Instructions: If you experience any of the following, contact your healthcare provider. * Bleeding that soaks a pad every hour for 2 hours * Fever 100.4 or higher * Unrelieved incision or abdominal pain * Swelling, redness, discharge or bleeding from your incision or episiotomy site * Your incision begins to separate * Problems urinating (including inability to urinate or burning while urinating). * Visual changes * Severe headache * Flu-like symptoms * Pain or redness in one of both of your breasts * Pain, warmth, tenderness or swelling in your legs, especially the calf area * Frequent nausea and vomiting * Symptoms of depression or anxiety If you experience any of the following, call 911 or go to the nearest Emergency Room. * Chest pain * Problems breathing * Seizure activity * Partial or complete paralysis of a body part, slurred speech, weakness or drooping of the face, or a sudden inability to walk or hold your balance Allergies/Adverse Reactions: Allergies No Known Allergies Allergy (Verified 02/16/19 23:48) Medications to take at Discharge Vits [Prenatabs FA] 1 tab PO DAILY 08/31/14 Primary Care Physician: Care Physician,No Primary [Primary Care Provider] - Test Results: Test results from this visit will be discussed in further detail at your follow- up appointment, if applicable.
--- NOTE | 2019-02-18 07:59 | PCM.DCVAG ---
Additional Instructions: If you experience any of the following, contact your healthcare provider. Bleeding that soaks a pad every hour for 2 hours Fever 100.4 or higher Unrelieved incision or abdominal pain Swelling, redness, discharge or bleeding from your incision or episiotomy site Your incision begins to separate Problems urinating (including inability to urinate or burning while urinating). Visual changes Severe headache Flu-like symptoms Pain or redness in one of both of your breasts Pain, warmth, tenderness or swelling in your legs, especially the calf area Frequent nausea and vomiting Symptoms of depression or anxiety If you experience any of the following, call 911 or go to the nearest Emergency Room. Chest pain Problems breathing Seizure activity Partial or complete paralysis of a body part, slurred speech, weakness or drooping of the face, or a sudden inability to walk or hold your balance Allergies/Adverse Reactions: Allergies No Known Allergies Allergy (Verified 02/16/19 23:48) Medications to take at Discharge Vits [Prenatabs FA] 1 tab PO DAILY 08/31/14 Primary Care Physician: Care Physician,No Primary [Primary Care Provider] - Test Results: Test results from this visit will be discussed in further detail at your follow-up appointment, if applicable.
[2019-02-18 08:30] VITALS: BP 104/59; PULSE 56; RESP 16; TEMP 35.8
[2019-02-18 14:00] VITALS: BP 113/62; PULSE 75; RESP 16; TEMP 36.9
== END 2019-02-18 14:35 | disposition home or self-care (01) | DRG 560 ==
PROVIDERS: Admitting Provider Obstetrics & Gynecology; Visit Provider Obstetrics & Gynecology
DX: O42.92 Full-term premature rupture of membranes, unspecified as to length of time between rupture and onset of labor (principal); O69.1XX0 Labor and delivery complicated by cord around neck, with compression, not applicable or unspecified; O99.214 Obesity complicating childbirth; E66.9 Obesity, unspecified; O99.334 Smoking (tobacco) complicating childbirth; F17.200 Nicotine dependence, unspecified, uncomplicated; Z28.21 Immunization not carried out because of patient refusal; Z3A.39 39 weeks gestation of pregnancy; Z37.0 Single live birth
CPT/HCPCS: 59025; 59050; 84112; 85025; 86850; 86900; 86901; 99218; J7120; A4216; G0378

== ENCOUNTER → 2021-09-14 | Outpatient (CLI) | payer MEDICAID, SELFPAY ==
[2021-09-14 10:37] LABS: hCG Titer Quant., Serum 22 mIU/mL (1-3)
== END | disposition home or self-care (01) ==
LOC: PAVLAB 09:42
PROVIDERS: Referring Provider Nurse Practitioner Women's Health; Visit Provider Nurse Practitioner Women's Health
DX: N91.2 Amenorrhea, unspecified (principal)
CPT/HCPCS: 36415; 84702

== ENCOUNTER 2021-09-15 08:26 | Emergency (ER) | payer MEDICAID, SELFPAY ==
[2021-09-15 08:27] VITALS: BP 137/81; PULSE 64; RESP 14; TEMP 35.9; O2SAT 98; BMI 44.6
--- NOTE | 2021-09-15 09:03 | US_ITS ---
STUDY: FIRST TRIMESTER OBSTETRICAL ULTRASOUND REASON FOR EXAM: Female, 26 years old . Vaginal bleeding. LMP: 08/14/2021. TECHNIQUE: Transvaginal TECHNICAL QUALITY: Adequate. PRIOR ULTRASOUND: None. FINDINGS: There is no demonstrated intrauterine gestational sac. There is no demonstrated yolk sac. The placenta is non-visualized. There is no demonstrated embryo ( pole). The estimated gestation age (EGA) by LMP is 4 weeks, 4 days. The uterus measures 8.6 cm x 5.7 cm x 4.6 cm. There is no demonstrated uterine fibroid. The cervix is closed. The endometrium measures 17 mm. The right ovary measures 2.4 cm x 2.1 cm x 1.7 cm. There is no right ovarian cyst. There is no visualized right adnexal mass or complex lesion. The left ovary measures 2.7 cm x 1.4 cm x 1.1 cm. There is no left ovarian cyst. There is no visualized left adnexal mass or complex lesion. There is no fluid in the cul de sac. US/Transvaginal w/Preg US IMPRESSION: No intrauterine gestation is seen. Correlation with the beta hCG recommended. Electronically Signed: Ethan Kendrick MD at 10:47 EDT ,
--- NOTE | 2021-09-15 09:04 | EDS_ITS ---
HPI <VANESSA Krueger - Last Filed: 09/15/21 10:58> HPI - Female History of Present Illness Chief Complaint: Vag Bld, Preg Narrative Narrative: 26-year-old G3, P2 woman presents with vaginal bleeding in first trimester . She saw her CRAB BACKER yesterday and had blood work and states she has 4 weeks, 3 days. Yesterday she had very light spotting and today a little heavier bright red blood. Its not soaking through pads and there are no significant clots. She has no abdominal pain. She has had occasional nausea and vomiting normal for her typical morning sickness. Her previous pregnancies had no complications with vaginal births. She is a patient of Dr. Barriga. PFS <VANESSA Krueger - Last Filed: 09/15/21 10:58> [facility] Medical History no medical history Home Medications NK 09/15/21 [History Last Taken Unknown] Allergy/AdvReac Type Severity Reaction Status Date / Time No Known Allergies Allergy Verified 09/15/21 08:27 Social History (Updated 03/31/19 @ 15:[address] Sandy Barriga MD) Smoking Status: Never smoker alcohol intake: never substance use type: does not use caffeine: Yes what type of physical activity do you participate in: walking seatbelt use: always do you feel safe at home: Yes additional social history: Taylor Gore Patient works at [email or web address] ROS <VANESSA Krueger - Last Filed: 09/15/21 10:58> ROS ED ROS Narrative Constitutional: Negative for fever, chills, malaise. Eyes: Negative for visual change. ENT: Negative for sore throat, ear pain, rhinorrhea. CVS: Negative for palpitations, chest pain, syncope. Respiratory: Negative for shortness of breath, cough, orthopnea. GI: Negative for abdominal pain, nausea, vomiting, diarrhea, constipation, melena, hematochezia. : Negative for dysuria, hematuria or frequency. Neuro: Negative for headache, motor/sensory dysfunction. Skin: Negative for rash, abscess, or wound. Musc: Negative for joint pain, swelling, trauma. Heme: Negative for easy bruising, bleeding, lymphadenopathy. EXAM <VANESSA Krueger - Last Filed: 09/15/21 10:58> Physical Exam Narrative Exam Narrative: CONST: Patient sitting in no acute distress. EYES: Normal inspection. NECK: Normal inspection. RESP: No respiratory distress, CTAB. CVS: Regular rate and rhythm, no murmur, no gallop. ABD: Soft and nontender, no guarding or rebound, nondistended. SKIN: Color normal, no rash, warm, dry, intact. EXTREMITIES: Normal appearance, no pedal edema. NEURO: Oriented x4. PSYCH: Normal affect. Const Vital Signs: 09/15/21 08:27 Temperature 96.6 F L Temperature Source Temporal Pulse Rate 64 Respiratory Rate 14 Blood Pressure 137/81 H Blood Pressure Mean 99 Pulse Ox 98 Oxygen Delivery Method Room Air <Dr. Scottie Walden DO - Last Filed: 09/15/21 12:20> Physical Exam Const Vital Signs: 09/15/21 08:27 Temperature 96.6 F L Temperature Source Temporal Pulse Rate 64 Respiratory Rate 14 Blood Pressure 137/81 H Blood Pressure Mean 99 Pulse Ox 98 Oxygen Delivery Method Room Air MDM <VANESSA Krueger - Last Filed: 09/15/21 10:58> [facility] Narrative Medical decision making narrative: Patient presents with vaginal bleeding in fi rst trimester . No abdominal pain. She appears well nontoxic. Afebrile and vital signs within normal limits. Abdomen is soft and nontender. Blood work shows normal hemoglobin of 14.6. hCG quant is 15 which is trended down from 22 yesterday. Ultrasound shows no evidence of IUP. With the low hCG levels and ultrasound results she likely had an early miscarriage. She needs to follow-up with her CRAB BACKER for trending labs and has an appointment with Dr. Barriga tomorrow. Patient was discharged in stable condition. Diagnoses 1. Vaginal bleeding in first trimester 2. Spontaneous Lab Data Labs: Laboratory Results - last 24 hr 09/15/21 09/15/21 09/15/21 09:15 09:15 09:15 WBC 9.1 RBC 4.71 Hgb 14.6 Hct 44.2 MCV 93.8 MCH 31.0 MCHC 33.0 RDW Std Deviation 50.5 H RDW Coeff of Melvin 14.5 Plt Count 278 MPV 10.9 Immature Gran % (Auto) 0.300 Neut % (Auto) 72.1 H Lymph % (Auto) 19.5 [place] % (Auto) 5.8 Eos % (Auto) 1.9 Baso % (Auto) 0.4 Absolute Neuts (auto) 6.5 Absolute Lymphs (auto) 1.77 Nucleated RBC % 0 HCG, Quant 15 H Urine Color Urine Clarity Urine pH Ur Specific [place] Urine Protein Urine Glucose (UA) Urine Ketones Urine Occult Blood Urine Nitrite Urine Bilirubin Urine Urobilinogen Ur Leukocyte Esterase Urine RBC Urine WBC Ur Squamous Epith Cells Urine Bacteria Urine Mucus Blood Type Cancelled A1 Antigen Typing Cancelled Rho(D) Type Cancelled 09/15/21 10:01 WBC RBC Hgb Hct MCV MCH MCHC RDW Std Deviation RDW Coeff of Melvin Plt Count MPV Immature Gran % (Auto) Neut % (Auto) Lymph % (Auto) [place] % (Auto) Eos % (Auto) Baso % (Auto) Absolute Neuts (auto) Absolute Lymphs (auto) Nucleated RBC % HCG, Quant Urine Color Yellow Urine Clarity Cloudy Urine pH 6.0 Ur Specific [place] 1.015 Urine Protein 30 H Urine Glucose (UA) Normal Urine Ketones Negative Urine Occult Blood 250 H Urine Nitrite Negative Urine Bilirubin Negative Urine Urobilinogen Normal Ur Leukocyte Esterase 25 H Urine RBC 25-50 SEEN Urine WBC 0 SEEN Ur Squamous Epith Cells 0 SEEN Urine Bacteria 0 SEEN Urine Mucus 0 SEEN Blood Type A1 Antigen Typing Rho(D) Type Radiography Diagnostic Testing: Clinical Impression(s) from Imaging Studies Obstetrics Ultrasound 09/15/21 09:03 IMPRESSION: No intrauterine gestation is seen. Correlation with the beta hCG recommended. Electronically Signed: Ethan Kendrick MD at 10:47 EDT , <Dr. Scottie Walden, DO - Last Filed: 09/15/21 12:20> [facility] MDM Narrative Medical decision making narrative: Patient seen and evaluated with physician financial services assistant. Agree with assessment, work-up, plan. Patient intimately examined by myself and she has normal vital signs and a benign abdominal exam. Since she is complaining of vaginal bleeding in we did obtain blood work and her CBC shows a stable hemoglobin and hematocrit. Platelets are normal. Urinalysis is negative. hCG quant has gone down from 22-15. Transvaginal ultrasound is obtained and does not show an intrauterine . Patient states that she has follow-up tomorrow for repeat hCG. This is likely representing complete miscarriage. Patient Rh+ and does not require RhoGAM. If she has any new or worsening symptoms she is to return to the ER. Impression: 1. Complete miscarriage 2. Vaginal bleeding Lab Data Attestation: I reviewed the patient's lab results. Labs: Laboratory Results - last 24 hr 09/15/21 09/15/21 09/15/21 09:15 09:15 09:15 WBC 9.1 RBC 4.71 Hgb 14.6 Hct 44.2 MCV 93.8 MCH 31.0 MCHC 33.0 RDW Std Deviation 50.5 H RDW Coeff of Melvin 14.5 Plt Count 278 MPV 10.9 Immature Gran % (Auto) 0.300 Neut % (Auto) 72.1 H Lymph % (Auto) 19.5 [place] % (Auto) 5.8 Eos % (Auto) 1.9 Baso % (Auto) 0.4 Absolute Neuts (auto) 6.5 Absolute Lymphs (auto) 1.77 Nucleated RBC % 0 HCG, Quant 15 H Urine Color Urine Clarity Urine pH Ur Specific [place] Urine Protein Urine Glucose (UA) Urine Ketones Urine Occult Blood Urine Nitrite Urine Bilirubin Urine Urobilinogen Ur Leukocyte Esterase Urine RBC Urine WBC Ur Squamous Epith Cells Urine Bacteria Urine Mucus Blood Type Cancelled A1 Antigen Typing Cancelled Rho(D) Type Cancelled 09/15/21 10:01 WBC RBC Hgb Hct MCV MCH MCHC RDW Std Deviation RDW Coeff of Melvin Plt Count MPV Immature Gran % (Auto) Neut % (Auto) Lymph % (Auto) [place] % (Auto) Eos % (Auto) Baso % (Auto) Absolute Neuts (auto) Absolute Lymphs (auto) Nucleated RBC % HCG, Quant Urine Color Yellow Urine Clarity Cloudy Urine pH 6.0 Ur Specific [place] 1.015 Urine Protein 30 H Urine Glucose (UA) Normal Urine Ketones Negative Urine Occult Blood 250 H Urine Nitrite Negative Urine Bilirubin Negative Urine Urobilinogen Normal Ur Leukocyte Esterase 25 H Urine RBC 25-50 SEEN Urine WBC 0 SEEN Ur Squamous Epith Cells 0 SEEN Urine Bacteria 0 SEEN Urine Mucus 0 SEEN Blood Type A1 Antigen Typing Rho(D) Type Radiography Diagnostic Testing: Clinical Impression(s) from Imaging Studies Obstetrics Ultrasound 09/15/21 09:03 IMPRESSION: No intrauterine gestation is seen. Correlation with the beta hCG recommended. Electronically Signed: Ethan Kendrick MD at 10:47 EDT , Discharge Plan Triage Chief Complaint: Vag Bld, Preg ED Provider: Gale Watt Dx/Rx/DC Orders Clinical Impression: Spontaneous in first trimester Instructions: ED MISCARRIAGE Completed Prescriptions: No Action NK RF: 0 Primary Care Provider: Care Physician,No Primary Referrals: Care Physician,No Primary [Primary Care Provider] - Activity Restrictions/Additional Instructions: Today your hormone levels were very low and your ultrasound showed no fetus meaning you likely had an early miscarriage. Take Tylenol ibuprofen as needed for pain. Your bleeding may become heavier. Follow-up with your CRAB BACKER this week. Disposition Disposition: Home, Self Care Discharge Date/Time: 09/15/21 11:13
[2021-09-15 09:25] LABS: Absolute Lymphocyte Count 1.77 X10^3/uL (0.83-4.51); Absolute Neutrophil Count 6.5 X10^3/uL (2.0-7.7); Basophil# 0.04 X10^3/uL; Basophil% 0.4 % (0-1); Eosinophil# 0.17 X10^3/uL; Eosinophils% 1.9 % (0-5); Hematocrit 44.2 % (37-47); Hemoglobin 14.6 g/dL (12.0-15.0); Lymphocyte # 1.77 X10^3/ul (0.83-4.51); Lymphocyte % 19.5 % (19-41); Mean Corpuscular Volume 93.8 fL (81-99); Mean Platelet Vol. 10.9 fl (6.2-12.0); Monocyte# 0.53 X10^3/uL; Monocyte% 5.8 % (0-10); NRBC Flagged by Analyzer 0 % (0-5); Neutrophil # 6.52 X10^3/uL (2.7-7.7); Neutrophil % 72.1 % (47-70); Platelet Count 278 K/mm3 (150-450); RBC Distribution Width CV 14.5 % (11.6-14.6); RBC Distribution Width SD 50.5 fl (35.1-43.9); Red Blood Count 4.71 M/mm3 (4.2-5.4); White Blood Count 9.1 K/mm3 (4.4-11.0)
[2021-09-15 10:11] LABS: hCG Titer Quant., Serum 15 mIU/mL (1-3)
[2021-09-15 10:22] LABS: Bacteria 0 SEEN /hpf (None Seen); Color, Urine Yellow (Yellow); Glucose, Dipstick Normal (Normal); Ketone-Dipstick Negative (Negative); Leukocyte Esterase-Dipstick 25 /ul (Negative); Mucous, Urine 0 SEEN /hpf (<or=2+); Nitrite-Dipstick Negative (Negative); Occult Blood-Urine 250 /ul (Negative); Protein-Dipstick 30 mg/dl (Negative); Specific Gravity, Urine 1.015 (1.002-1.030); Squamous Epithelial Cells - UA 0 SEEN /hpf (5-10); Urine Bilirubin Dipstick Negative (Negative); Urine Clarity Cloudy (Clear); Urine Urobilinogen Normal (Normal); White Blood Cells 0 SEEN /hpf (0-5)
[2021-09-15 10:30] LABS: Red Blood Cells-Urine 25-50 SEEN /hpf (0-5)
--- NOTE | 2021-09-15 10:41 | CM.ED ---
SW Note Referral Source: Case Find SW met with patient and provided her with PCP resources. Patient confirmed she does not have a PCP. SW provided patient with list of [facility] Healthcare Providers. Kalli ORTIZ
== END 2021-09-15 11:13 | disposition home or self-care (01) ==
PROVIDERS: Emergency Provider Physician Assistant; Visit Provider Physician Assistant
DX: O03.9 Complete or unspecified spontaneous abortion without complication (principal)
CPT/HCPCS: 76817; 81001; 84702; 85025; 86900; 86901; 99283; A4216

== ENCOUNTER → 2021-09-17 | Outpatient (CLI) | payer MEDICAID, SELFPAY ==
[2021-09-17 12:26] LABS: hCG Titer Quant., Serum 3 mIU/mL (1-3)
== END | disposition home or self-care (01) ==
LOC: LAB 11:31
PROVIDERS: Visit Provider Nurse Practitioner Women's Health
DX: N91.2 Amenorrhea, unspecified (principal)
CPT/HCPCS: 36415; 84702

== ENCOUNTER → 2022-01-23 | Outpatient (CLI) | payer MEDICAID, SELFPAY ==
[2022-01-23 12:19] LABS: hCG Titer Quant., Serum 425 mIU/mL (1-3)
== END | disposition home or self-care (01) ==
LOC: LAB 11:40
PROVIDERS: Referring Provider Obstetrics & Gynecology; Visit Provider Obstetrics & Gynecology
DX: O20.0 Threatened abortion (principal)
CPT/HCPCS: 36415; 84702; 86850; 86900; 86901

== ENCOUNTER → 2022-01-25 | Outpatient (CLI) | payer MEDICAID, SELFPAY ==
[2022-01-25 11:36] LABS: Hemoglobin A1c 5.3 % (3.8-5.6)
[2022-01-25 11:52] LABS: hCG Titer Quant., Serum 57 mIU/mL (1-3)
[2022-01-28 04:08] LABS: Dilute Prothrombin Time (dPT) 33.6 sec (0.0-47.6); Dilute Russell Viper Venom 40.7 sec (0.0-47.0); PTT-LA 35.8 sec (0.0-51.9); Thrombin Time 17.7 sec (0.0-23.0)
[2022-01-28 07:41] LABS: Anti-Cardiolipin Ab, IgA, Qn < 9 APL U/mL (0-11); Anti-Cardiolipin Ab, IgG, Qn < 9 GPL U/mL (0-14); Anti-Cardiolipin Ab, IgM, Qn < 9 MPL U/mL (0-12); Beta-2-Glycoprotein I IgA <9 (0-25); Beta-2-Glycoprotein I IgG <9 (0-20); Beta-2-Glycoprotein I IgM <9 (0-32); Interpretation Comment: (.)
== END | disposition home or self-care (01) ==
LOC: PAVLAB 10:34
PROVIDERS: Referring Provider Obstetrics & Gynecology; Visit Provider Obstetrics & Gynecology
DX: O36.80X0 Pregnancy with inconclusive fetal viability, not applicable or unspecified (principal); O26.20 Pregnancy care for patient with recurrent pregnancy loss, unspecified trimester; Z3A.00 Weeks of gestation of pregnancy not specified; Z13.1 Encounter for screening for diabetes mellitus
CPT/HCPCS: 36415; 83036; 84702; 86146; 86147

== ENCOUNTER → 2022-05-09 | Outpatient (CLI) | payer MEDICAID, SELFPAY ==
--- NOTE | 2022-05-09 14:00 | US_ITS ---
INDICATION: viability -- 6-7 weeks gestation EXAMINATION: Ultrasound US OB Transvaginal TECHNIQUE: Transvaginal (for optimal evaluation of the adnexa) pelvic ultrasound was performed. Grayscale, spectral waveform, and color flow Doppler evaluation of the adnexa. COMPARISON: None. LMP: [03/28/2022 Beta-hCG: Unknown FINDINGS: UTERUS: 10.8 x 7.0 x 5.5 cm. RIGHT OVARY: 3.3 x 2.0 x 2.0 cm. Normal. LEFT OVARY: 2.8 x 1.8 x 1.6 cm. Normal. FREE FLUID: None. INTRAUTERINE GESTATIONAL SAC(s) (size/shape): Irregular saclike fluid collection in the endometrium. Mean sac diameter 0.52 cm. YOLK SAC: Not identified POLE: Not identified. US/Transvaginal w/Preg US IMPRESSION: Findings consistent with of unknown location. Although very early IUP is likely, ectopic cannot be entirely excluded. In a hemodynamically stable patient, a follow-up sonographic examination in 7-10 days in combination with serial beta hCG levels is recommended. Electronically Signed: Anshul Renner MD at 19:26 EST ,
== END | disposition home or self-care (01) ==
LOC: OPUS 13:59
PROVIDERS: Referring Provider Obstetrics & Gynecology; Visit Provider Obstetrics & Gynecology
DX: N96 Recurrent pregnancy loss (principal)
CPT/HCPCS: 76817

== ENCOUNTER → 2022-05-10 | Outpatient (CLI) | payer MEDICAID, SELFPAY ==
[2022-05-10 11:02] LABS: hCG Titer Quant., Serum 587 mIU/mL (1-3)
== END | disposition home or self-care (01) ==
PROVIDERS: Nurse Practitioner Women's Health; Referring Provider Obstetrics & Gynecology; Visit Provider Obstetrics & Gynecology
DX: N91.2 Amenorrhea, unspecified (principal)
CPT/HCPCS: 36415; 84702

== ENCOUNTER → 2022-05-12 | Outpatient (CLI) | payer MEDICAID, SELFPAY ==
[2022-05-12 11:44] LABS: hCG Titer Quant., Serum 1030 mIU/mL (1-3)
== END | disposition home or self-care (01) ==
LOC: PAVLAB 10:13
PROVIDERS: Referring Provider Obstetrics & Gynecology; Visit Provider Obstetrics & Gynecology
DX: N91.2 Amenorrhea, unspecified (principal)
CPT/HCPCS: 36415; 84702

== ENCOUNTER → 2022-05-18 | Outpatient (CLI) | payer MEDICAID, SELFPAY ==
--- NOTE | 2022-05-18 12:03 | US_ITS ---
STUDY: FIRST TRIMESTER OBSTETRICAL ULTRASOUND REASON FOR EXAM: Female, 27 years old viability LMP: 03/28/2022. TECHNIQUE: Transvaginal TECHNICAL QUALITY: Adequate. PRIOR ULTRASOUND: Comparison is made with prior study dated 05/09/2022. FINDINGS: There is visualization of a single gestational sac in a normal intrauterine position. The mean sac diameter (MSD) measures 9.3 mm, indicating an estimated gestational age (EGA) of 5 weeks, 5 days. The gestational sac shape is within normal limits. There is a visualized yolk sac. The yolk sac measures 3.1 mm. The placenta is non-visualized. There is visualization of a live embryo. The crown-rump length (CRL) measures 3 mm, indicating an estimated gestational age (EGA) of 6 weeks, 1 days. There is demonstrated cardiac activity with a heart rate of bpm. The estimated gestation age (EGA) by LMP is 7 weeks, 2 days. The estimated date of delivery (KATLYN) by LMP is 01/02/2023. The estimated gestation age (EGA) by US is 6 weeks, 0 days. The estimated date of delivery (KATLYN) by US is 01/11/2023. The uterus measures 11 cm x 8.37 x 6.8 cm. Small subchorionic bleed measuring 3 mm x 8 mm x 4 mm. There is no demonstrated uterine fibroid. The cervix is closed. The right ovary measures 2.5 cm x 0.9 cm x 1.3 cm. There is no right ovarian cyst. There is no visualized right adnexal mass or complex lesion. The left ovary measures 2.1 cm x 1.1 cm x 2.1 cm. There is no left ovarian cyst. There is no visualized left adnexal mass or complex lesion. There is no fluid in the cul de sac. US/Transvaginal w/Preg US IMPRESSION: Single live intrauterine gestation with mean gestational age of 6 weeks. Small subchorionic bleed measuring 3 mm x 8 mm x 4 mm. Electronically Signed: Ethan Kendrick MD at 15:29 EST ,
== END | disposition home or self-care (01) ==
LOC: US 12:01
PROVIDERS: Referring Provider Obstetrics & Gynecology; Visit Provider Obstetrics & Gynecology
DX: N91.2 Amenorrhea, unspecified (principal)
CPT/HCPCS: 76817

== ENCOUNTER → 2022-05-30 | Outpatient (CLI) | payer MEDICAID, SELFPAY ==
[2022-06-01 06:07] LABS: Chlamydia By Nucleic Acid AMP Negative (Negative)
[2022-06-02 20:33] LABS: Gonococcus By Nucleic Acid AMP Negative (Negative)
[2022-06-02 23:14] LABS: HPV Reflexed? NOT INDICATED
== END | disposition home or self-care (01) ==
PROVIDERS: Visit Provider Obstetrics & Gynecology
DX: Z34.90 Encounter for supervision of normal pregnancy, unspecified, unspecified trimester (principal); Z12.4 Encounter for screening for malignant neoplasm of cervix
CPT/HCPCS: 87086; 87088; 87491; 87591; 88175; G0145

== ENCOUNTER → 2022-06-23 | Outpatient (CLI) | payer MEDICAID, SELFPAY ==
[2022-06-23 11:33] LABS: Absolute Lymphocyte Count 1.67 X10^3/uL (0.83-4.51); Absolute Neutrophil Count 7.9 X10^3/uL (2.0-7.7); Basophil# 0.03 X10^3/uL; Basophil% 0.3 % (0-1); Eosinophil# 0.02 X10^3/uL; Eosinophils% 0.2 % (0-5); Hematocrit 38.8 % (37-47); Hemoglobin 12.6 g/dL (12.0-15.0); Lymphocyte # 1.67 X10^3/ul (0.83-4.51); Lymphocyte % 16.6 % (19-41); Mean Corp Hgb Conc 32.5 g/dL (32-36); Mean Corpuscular Hgb 30.1 pg (27.0-32.0); Mean Corpuscular Volume 92.8 fL (81-99); Mean Platelet Vol. 10.9 fl (6.2-12.0); NRBC Flagged by Analyzer 0 % (0-5); Neutrophil # 7.89 X10^3/uL (2.7-7.7); Neutrophil % 78.4 % (47-70); Platelet Count 273 K/mm3 (150-450); RBC Distribution Width CV 14.7 % (11.6-14.6); RBC Distribution Width SD 50.4 fl (35.1-43.9); Red Blood Count 4.18 M/mm3 (4.2-5.4); White Blood Count 10.1 K/mm3 (4.4-11.0)
[2022-06-23 12:06] LABS: Glucose Challenge Gest 1H 50g 111 mg/dL (70-140)
[2022-06-23 12:24] LABS: NATERA MAILED SPECIMEN
[2022-06-23 12:54] LABS: HIV - WCH Non-Reactive (Nonreactive); Hepatitis B Surface Antigen Non-Reactive (Nonreactive); Hepatitis C Antibody Non-Reactive (Nonreactive); Rubella IgG Equiv (Nonreactive); Syphilis Antibodies Non-reactive
== END | disposition home or self-care (01) ==
LOC: PAVLAB 11:09
PROVIDERS: Referring Provider Obstetrics & Gynecology; Visit Provider Obstetrics & Gynecology
DX: Z34.81 Encounter for supervision of other normal pregnancy, first trimester (principal)
CPT/HCPCS: 36415; 82950; 85025; 86703; 86762; 86780; 86803; 86850; 86900; 86901; 87340

== ENCOUNTER → 2022-10-10 | Outpatient (CLI) | payer MEDICAID, SELFPAY ==
[2022-10-10 10:09] LABS: Absolute Lymphocyte Count 1.73 X10^3/uL (0.83-4.51); Absolute Neutrophil Count 7.1 X10^3/uL (2.0-7.7); Basophil# 0.04 X10^3/uL; Basophil% 0.4 % (0-1); Eosinophil# 0.25 X10^3/uL; Eosinophils% 2.6 % (0-5); Hematocrit 36.8 % (37-47); Lymphocyte # 1.73 X10^3/ul (0.83-4.51); Lymphocyte % 17.9 % (19-41); Mean Corp Hgb Conc 32.6 g/dL (32-36); Mean Corpuscular Volume 95.1 fL (81-99); Mean Platelet Vol. 10.4 fl (6.2-12.0); Monocyte# 0.47 X10^3/uL; Monocyte% 4.9 % (0-10); NRBC Flagged by Analyzer 0 % (0-5); Neutrophil # 7.14 X10^3/uL (2.7-7.7); Neutrophil % 73.7 % (47-70); Platelet Count 266 K/mm3 (150-450); RBC Distribution Width CV 13.7 % (11.6-14.6); RBC Distribution Width SD 47.6 fl (35.1-43.9); Red Blood Count 3.87 M/mm3 (4.2-5.4); White Blood Count 9.7 K/mm3 (4.4-11.0)
[2022-10-10 10:35] LABS: Glucose Challenge Gest 1H 50g 107 mg/dL (70-140)
[2022-10-10 11:11] LABS: HIV - WCH Non-Reactive (Nonreactive); Syphilis Antibodies Non-reactive
== END | disposition home or self-care (01) ==
PROVIDERS: Referring Provider Nurse Practitioner Women's Health; Visit Provider Nurse Practitioner Women's Health
DX: Z34.90 Encounter for supervision of normal pregnancy, unspecified, unspecified trimester (principal); Z13.1 Encounter for screening for diabetes mellitus
CPT/HCPCS: 36415; 82950; 85025; 86703; 86780

== ENCOUNTER → 2022-11-09 | Outpatient (CLI) | payer MEDICAID, SELFPAY ==
--- NOTE | 2022-11-09 08:53 | US_ITS ---
STUDY: SECOND AND THIRD TRIMESTER OBSTETRICAL ULTRASOUND - LIMITED REASON FOR EXAM: Female, 27 years old GROWTH LMP: April 05, 2022. PRIOR ULTRASOUND: Comparison is made with prior study dated May 18, 2022. TECHNIQUE: Transabdominal TECHNICAL QUALITY: Adequate. FINDINGS: There is a single intrauterine fetus. The fetus is in a breech presentation. There is demonstrated cardiac activity with a heart rate of 155 bpm. There is a normal amniotic fluid volume. The largest amniotic fluid pocket measures 5.6 cm. The amniotic fluid index (CASEY) is 15.2 cm. The placenta is posterior in location and is not low lying. There are Grade 2 placental changes. The cervix measures 3.5 cm in length. BIOMETRY: BPD: 7.62 cm: 30 weeks, 4 days HC: 28.93 cm: 31 weeks, 6 days AC: 27.83 cm: 31 weeks, 6 days FL: 5.84 cm: 30 weeks, 4 days Age by LMP: 31 weeks, 1 days. KATLYN by LMP: January 10, 2023. age by prior US: 31 weeks, 0 days. KATLYN by prior US: January 11, 2023. age by current US: 31 weeks, 2 days. KATLYN by current US: January 09, 2023. Estimated weight: 1750 grams, +/- 262 grams, 45 percentile. US/OB Limited With Biometrics IMPRESSION: Single live intrauterine gestation with mean gestational age of 31 weeks. The measurements obtained today fall within normal expected range. Electronically Signed: Ethan Kendrick MD at 14:40 EDT ,
== END | disposition home or self-care (01) ==
LOC: OPUS 08:52
PROVIDERS: Referring Provider Obstetrics & Gynecology; Visit Provider Obstetrics & Gynecology
DX: O26.843 Uterine size-date discrepancy, third trimester (principal); Z3A.00 Weeks of gestation of pregnancy not specified
CPT/HCPCS: 76816

== ENCOUNTER 2022-12-05 18:20 | Outpatient (CLI) | payer MEDICAID, SELFPAY ==
[2022-12-05 18:53] VITALS: BMI 44.5
[2022-12-05 18:57] VITALS: BP 129/78; PULSE 80
[2022-12-05 19:17] VITALS: BP 130/77; PULSE 76; TEMP 37.1
[2022-12-05 19:40] LABS: Bacteria 0 SEEN /hpf (None Seen); Color, Urine Yellow (Yellow); Glucose, Dipstick Normal (Normal); Ketone-Dipstick 15 mg/dl (Negative); Leukocyte Esterase-Dipstick 25 /ul (Negative); Mucous, Urine 0 SEEN /hpf (<or=2+); Nitrite-Dipstick Negative (Negative); Occult Blood-Urine Negative /ul (Negative); Protein-Dipstick Negative (Negative); Red Blood Cells-Urine 0 SEEN /hpf (0-5); Specific Gravity, Urine 1.015 (1.002-1.030); Urine Bilirubin Dipstick Negative (Negative); Urine Clarity Sl. Cloudy (Clear); Urine Urobilinogen Normal (Normal)
[2022-12-05 19:49] LABS: Amorphous Sediment 1+; Squamous Epithelial Cells - UA 0-5 SEEN /hpf (5-10); White Blood Cells 0-5 SEEN /hpf (0-5)
[2022-12-05] MEDS: Lactated Ringers 1,000 ML 999 ML IV ×2 (20:10→21:11)
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
[2022-12-05] MEDS: Betamethasone/Betamethasone 30 MG/5 ML Vial 12 MG IM (21:50)
== END 2022-12-05 22:20 | disposition home or self-care (01) ==
LOC: WPOUT 18:27 → WP 18:27
PROVIDERS: Referring Provider Advanced Practice Midwife; Visit Provider Advanced Practice Midwife
DX: O47.03 False labor before 37 completed weeks of gestation, third trimester (principal); Z3A.30 30 weeks gestation of pregnancy; O99.891 Other specified diseases and conditions complicating pregnancy; Z87.898 Personal history of other specified conditions; O99.213 Obesity complicating pregnancy, third trimester; O23.43 Unspecified infection of urinary tract in pregnancy, third trimester
CPT/HCPCS: 96360; 96361; 96372; 36415; 59025; 59050; 76815; 81001; 99221; J7120; G0378; J0702

== ENCOUNTER 2022-12-07 19:38 | Outpatient (CLI) | payer MEDICAID, SELFPAY ==
[2022-12-07 19:58] VITALS: BMI 45.2
[2022-12-07] MEDS: Betamethasone/Betamethasone 30 MG/5 ML Vial 12 MG IM (20:37)
--- NOTE | 2023-03-09 09:54 | PCM.PN.BLA ---
Progress Note pt here today for a celestone injection only for diagnosis of threatened labor and contractions. She has no additional complaints today and is scheduled for close follow up in the office Assessment & Plan Assessment/Plan (1) contractions: (2) Threatened labor:
== END 2022-12-07 20:50 | disposition home or self-care (01) ==
LOC: WPOUT 19:52 → WP 19:53
PROVIDERS: Referring Provider Obstetrics & Gynecology; Visit Provider Obstetrics & Gynecology
DX: O20.0 Threatened abortion (principal); O60.00 Preterm labor without delivery, unspecified trimester; Z3A.00 Weeks of gestation of pregnancy not specified
CPT/HCPCS: 96372; 99221; G0378; J0702

== ENCOUNTER → 2022-12-11 | Outpatient (CLI) | payer MEDICAID, SELFPAY ==
--- NOTE | 2022-12-11 09:49 | US_ITS ---
STUDY: SECOND AND THIRD TRIMESTER OBSTETRICAL ULTRASOUND - LIMITED REASON FOR EXAM: Female, 27 years old growth -- 36 wks LMP: April 05, 2022. PRIOR ULTRASOUND: Comparison is made with prior study dated November 09, 2022. TECHNIQUE: Transabdominal TECHNICAL QUALITY: Adequate. FINDINGS: There is a single intrauterine fetus. The fetus is in a cephalic presentation. There is demonstrated cardiac activity with a heart rate of 164 bpm. There is a normal amniotic fluid volume. The largest amniotic fluid pocket measures 5.5 cm. The amniotic fluid index (CASEY) is 16.4 cm. The placenta is fundal and posterior in location and is not low lying. There are Grade 3 placental changes. The cervix measures 3.3 cm in length. BIOMETRY: BPD: 8.8 cm: 35 weeks, 4 days HC: 31.8 cm: 35 weeks, 5 days AC: 32.02 cm: 36 weeks, 0 days FL: 6.86 cm: 35 weeks, 2 days Age by LMP: 35 weeks, 5 days. KATLYN by LMP: January 10, 2023. age by prior US: 35 weeks, 6 days. KATLYN by prior US: January 09, 2023. age by current US: 35 weeks, 5 days. KATLYN by current US: January 10, 2023. Estimated weight: 2774 grams, +/- 416 grams, 53 percentile. US/OB Limited With Biometrics IMPRESSION: Single live intrauterine gestation with a mean gestational age of 35 weeks and 5 days. There has been good interval growth. Electronically Signed: Ethan Kendrick MD at 13:09 EDT ,
== END | disposition home or self-care (01) ==
LOC: US 09:49
PROVIDERS: Referring Provider Obstetrics & Gynecology; Visit Provider Obstetrics & Gynecology
DX: O99.210 Obesity complicating pregnancy, unspecified trimester (principal); Z3A.30 30 weeks gestation of pregnancy
CPT/HCPCS: 76816

== ENCOUNTER 2022-12-12 12:45 | Outpatient (CLI) | payer MEDICAID, SELFPAY ==
[2022-12-12 13:02] VITALS: BMI 44.5
[2022-12-12 13:08] VITALS: TEMP 36.4; O2SAT 97
[2022-12-12 13:16] VITALS: PULSE 98; O2SAT 96
[2022-12-12 13:40] VITALS: BP 115/68; PULSE 105
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
== END 2022-12-12 13:50 | disposition home or self-care (01) ==
LOC: WPOUT 12:47 → WP 12:47
PROVIDERS: Referring Provider Obstetrics & Gynecology; Visit Provider Obstetrics & Gynecology
DX: O47.03 False labor before 37 completed weeks of gestation, third trimester (principal); Z3A.35 35 weeks gestation of pregnancy; O23.43 Unspecified infection of urinary tract in pregnancy, third trimester; O99.213 Obesity complicating pregnancy, third trimester
CPT/HCPCS: 59025; 59050; 99221; G0378

== ENCOUNTER → 2022-12-18 | Outpatient (CLI) | payer MEDICAID, SELFPAY | END | disposition home or self-care (01) | LOC: LABSPEC 16:38 | PROVIDERS: Referring Provider Obstetrics & Gynecology; Visit Provider Obstetrics & Gynecology | DX: O09.90 Supervision of high risk pregnancy, unspecified, unspecified trimester (principal); Z3A.00 Weeks of gestation of pregnancy not specified | CPT/HCPCS: 87081 ==

== ENCOUNTER 2022-12-26 10:30 | Outpatient (CLI) | payer MEDICAID, SELFPAY ==
[2022-12-26 10:41] VITALS: BP 120/68; PULSE 127
[2022-12-26 10:42] VITALS: PULSE 120; TEMP 36.4; O2SAT 97
[2022-12-26 11:04] VITALS: BMI 44.9
[2022-12-26 11:38] LABS: ROM Internal Control Test YES-OK TO RESULT pt. (Internal QC); ROM Patient Test Negative (Negative); Record Kit Lot#, ROM+ K1374
--- NOTE | 2022-12-26 12:10 | US_ITS ---
STUDY: SECOND AND THIRD TRIMESTER OBSTETRICAL ULTRASOUND - LIMITED REASON FOR EXAM: Female, 27 years old CASEY/growth LMP: April 05, 2022. PRIOR ULTRASOUND: Comparison is made with prior study dated December 11, 2022. TECHNIQUE: Transabdominal TECHNICAL QUALITY: Adequate. FINDINGS: There is a single intrauterine fetus. The fetus is in a cephalic presentation. There is demonstrated cardiac activity with a heart rate of 150 bpm. There is a normal amniotic fluid volume. The largest amniotic fluid pocket measures 4.61 cm. The amniotic fluid index (CASEY) is 13.58 cm. The placenta is fundal in location. There are Grade 3 placental changes. The cervical length was not measured due to positioning. BIOMETRY: BPD: 9.3 cm: 37 weeks, 6 days HC: 33.29 cm: 38 weeks, 0 days AC: 33.94 cm: 37 weeks, 6 days FL: 7.25 cm: 37 weeks, 1 days Age by LMP: 37 weeks, 6 days. KATLYN by LMP: January 10, 2023. age by prior US: 37 weeks, 6 days. KATLYN by prior US: January 10, 2023. age by current US: 37 weeks, 5 days. KATLYN by current US: January 11, 2023. Estimated weight: 3309 grams, +/- 496 grams, 60 percentile. US/OB Limited With Biometrics IMPRESSION: Single live intrauterine gestation with mean gestational age of 37 weeks and 6 days. The measurements obtained today fall within normal expected range. Electronically Signed: Ethan Kendrick MD at 15:18 EDT ,
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
[2022-12-26 13:28] VITALS: BP 106/58; PULSE 73
== END 2022-12-26 13:45 | disposition home or self-care (01) ==
LOC: WPOUT 10:36 → WP 10:36
PROVIDERS: Advanced Practice Midwife; Referring Provider Obstetrics & Gynecology; Visit Provider Obstetrics & Gynecology
DX: O99.891 Other specified diseases and conditions complicating pregnancy (principal); N89.8 Other specified noninflammatory disorders of vagina; Z3A.37 37 weeks gestation of pregnancy; O99.213 Obesity complicating pregnancy, third trimester
CPT/HCPCS: 59025; 59050; 76816; 84112; 99221; G0378

== ENCOUNTER 2023-01-04 07:00 | Inpatient (IN) | payer MEDICAID, SELFPAY ==
[2023-01-04] VITALS (51 sets, daily range): BP systolic 87–140; BP diastolic 46–82; PULSE 55–109; RESP 15; TEMP 36.1–37.2; O2SAT 92–100; BMI 46.9
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
[2023-01-04 08:00] LABS: Basophil# 0.02 X10^3/uL; Basophil% 0.2 % (0-1); Eosinophil# 0.03 X10^3/uL; Eosinophils% 0.3 % (0-5); Hematocrit 32.8 % (37-47); Hemoglobin 10.7 g/dL (12.0-15.0); Lymphocyte % 15.7 % (19-41); Mean Corp Hgb Conc 32.6 g/dL (32-36); Mean Corpuscular Hgb 30.2 pg (27.0-32.0); Mean Corpuscular Volume 92.7 fL (81-99); Mean Platelet Vol. 10.5 fl (6.2-12.0); Monocyte# 0.43 X10^3/uL; Monocyte% 4.2 % (0-10); NRBC Flagged by Analyzer 0 % (0-5); Neutrophil # 8.01 X10^3/uL (2.7-7.7); Neutrophil % 78.4 % (47-70); Platelet Count 236 K/mm3 (150-450); RBC Distribution Width CV 13.3 % (11.6-14.6); RBC Distribution Width SD 45.4 fl (35.1-43.9); Red Blood Count 3.54 M/mm3 (4.2-5.4); White Blood Count 10.2 K/mm3 (4.4-11.0)
[2023-01-04] MEDS: Lactated Ringers 1,000 ML 50 ML IV (08:00)
[2023-01-04] MEDS: Oxytocin 15 Units/NS 250ml 15 UNITS/250 ML IV.SOLN 2 UNITS IV (08:17)
[2023-01-04] MEDS: LACTATED RINGERS 500 ML 999 ML IV ×2 (08:22→13:31)
[2023-01-04 08:55] LABS: Syphilis Antibodies Non-reactive
[2023-01-04] MEDS: fentaNYL-bupivacaine (epidural) 100 ML BAG EPIDURAL ×2 (09:24→14:30)
[2023-01-04] MEDS: Lactated Ringers 1,000 ML 200 ML IV (10:57)
[2023-01-04] MEDS: Oxytocin 15 Units/NS 250ml 15 UNITS/250 ML IV.SOLN 83 UNITS IV (16:24)
[2023-01-04] MEDS: Naproxen 500 MG Tablet PO (17:24)
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
[2023-01-05 00:20] VITALS: BP 114/47; PULSE 73; RESP 15; O2SAT 95
--- NOTE | 2023-01-05 06:28 | DCINST_ITS ---
Discharge Instructions Diet Discharge Diet: No restrictions Activity Discharge Activity: Return to Normal Activity, May Not Drive (while taking narcotic pain medications.) and May Shower May resume sexual activity in: 4-6 weeks Dressing / Incision Call your doctor if your incision/area has: Continuous Slow Oozing, Sudden Increased Bleeding, Increased Pain/ Swelling, Increased Redness and Foul Smelling Discharge Follow Up Care Please Follow Up With: Sandy Barriga MD When: Call [phone] to make an appointment with your doctor in 6 weeks. If you had elevated blood pressure or 4th degree laceration, you will need to be seen in 2 weeks. Test Results: Test results from this visit will be discussed in further detail at your follow- up appointment, if applicable. Discharge Plan Admission Admit Date/Time: 01/04/23 07:00 Attending Provider: Sandy Barriga Primary Care Provider: Care Physician,Eusebia Primary Discharge Orders/Prescriptions Prescriptions: No Action prenat.vits,hugo,nqs-cfcw-hdbfr Tablet 1 tab PO DAILY Referrals / Follow Up: Care Physician,No Primary [Primary Care Provider] - Disposition Disposition (needs filled in before D/C Order can be placed): Home, Self Care
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
[2023-01-05 08:10] VITALS: BP 121/63; PULSE 67; RESP 18; TEMP 36.8; O2SAT 97
[2023-01-05] MEDS: Prenatal Vits Tablet 1 TABLET PO (08:19)
[2023-01-05] MEDS: Senna/Docusate Sodium 1 Tablet PO (08:19)
[2023-01-05] MEDS: Acetaminophen 500 MG Tablet 1000 MG PO (08:20)
[2023-01-05 12:10] VITALS: BP 117/65; PULSE 63; RESP 16; TEMP 36.7; O2SAT 97
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
[2023-01-05 16:50] VITALS: BP 108/56; PULSE 67; RESP 16; TEMP 36.9; O2SAT 97
[2023-01-05 20:55] VITALS: BP 117/45; PULSE 61; RESP 16
[2023-01-06 01:05] VITALS: BP 125/73; PULSE 61; RESP 16
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
[2023-01-06] MEDS: Prenatal Vits Tablet 1 TABLET PO (09:18)
[2023-01-06 09:19] VITALS: BP 122/63; PULSE 63; RESP 15; TEMP 36.6; O2SAT 95
== END 2023-01-06 11:20 | disposition home or self-care (01) | DRG 560 ==
PROVIDERS: Admitting Provider Obstetrics & Gynecology; Referring Provider Obstetrics & Gynecology; Visit Provider Obstetrics & Gynecology
DX: O23.43 Unspecified infection of urinary tract in pregnancy, third trimester (principal); Z37.0 Single live birth; E66.8 Other obesity; O69.81X0 Labor and delivery complicated by cord around neck, without compression, not applicable or unspecified; Z87.891 Personal history of nicotine dependence; Z30.2 Encounter for sterilization; Z3A.38 38 weeks gestation of pregnancy; O26.23 Pregnancy care for patient with recurrent pregnancy loss, third trimester; O99.214 Obesity complicating childbirth
CPT/HCPCS: 59025; 59050; 85025; 86780; 86850; 86900; 86901; 99221; J7120; G0378

== ENCOUNTER 2023-04-03 14:05 | Day surgery (SDC) | payer MEDICAID, SELFPAY ==
[2023-03-27 10:14] LABS: Hematocrit 43.1 % (37-47); Hemoglobin 13.5 g/dL (12.0-15.0); Mean Corp Hgb Conc 31.3 g/dL (32-36); Mean Corpuscular Volume 92.5 fL (81-99); Mean Platelet Vol. 10.8 fl (6.2-12.0); Platelet Count 335 K/mm3 (150-450); RBC Distribution Width CV 14.5 % (11.6-14.6); RBC Distribution Width SD 49.7 fl (35.1-43.9); Red Blood Count 4.66 M/mm3 (4.2-5.4); White Blood Count 7.7 K/mm3 (4.4-11.0)
--- NOTE | 2023-04-03 07:34 | HP.PCM_ITS ---
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 Other Club foot Social History adopted: No household members: spouse and children number of children: 2 current occupational status: employed current occupation: [employer] current occupational exposures/hazards: No pets and animals: Yes pets and animals: dog(s) history of recent travel: No sexually active: Yes Smoking Status: Current every day smoker tobacco type: e-cigarettes alcohol intake: never substance use type: does not use well-balanced diet: daily or most days caffeine: No eating out: rarely or never during the past year weight has: remained stable what type of physical activity do you participate in: none lakeshia/scientology: None seatbelt use: always do you feel safe at home: Yes additional social history: [employer] Patient works at [employer] BS Details: PRECIOUS KIM is a 27 year old who presents for preop for surgery sterilization. title 19 11/20. Female Reproductive History Menopausal Symptoms: No night sweats History 5 Elective abortions Hx Para 3 Spontaneous abortions 2 Hx # Term Pregnancies 3 Ectopic pregnancies Hx # Pregnancies Multiple births # of living children 3 Past Pregnancies Del. Date Name GA/Weeks Outcome Route Bth Weight Gen Labor Lgth Anesthesia Del Locatn Provider FOB Unknown 2014 Madalynn live - full term NS VD Female [facility] Rodriguez- Nicholas 02/17/19 Liang 39 live - full term 7lbs 9oz Female epidural [facility] 01/04/23 Mcmullen 39 live - full term NS VD Female [facility] ROS Const Constitutional: Denies fatigue, night sweats, weight gain or weight loss ENT ENT: Reports system reviewed and no additional complaints, except as documented Cardio Card: Denies chest pain Resp Resp: Denies cough or dyspnea GI GI: Reports as per HPI; Denies abdominal pain, constipation, nausea or vomiting : Denies nipple discharge, urinary frequency, urinary incontinence, urinary hesitancy, urinary urgency, vaginal discharge, vaginal dryness, vaginal odor or vaginal pruritus Musc Musc: Denies arthralgias, back pain or muscle weakness Skin Skin/Breast: Denies alopecia, change in hair, dry skin, breast mass, breast pain, breast skin changes or nipple discharge Neuro Neuro: Reports system reviewed and no additional complaints, except as documented Psych Psych: Reports system reviewed and no additional complaints, except as documented Endo Endo: Denies cold intolerance, excessive sweating, heat intolerance or polydipsia Jamshid/Lymph Hematologic/Lymphatic: Denies easy bleeding, Denies easy bruising and Denies lymphadenopathy Exam Const General: cooperative, healthy appearing, comfortable and no acute distress Orientation: alert [facility] Head: normal to inspection and normocephalic Ears: hearing grossly normal bilaterally and external ears normal Nose: external nose normal and nares normal Face and sinus: normal facial exam Neck Neck: normal visual inspection and no lymphadenopathy Thyroid: thyroid normal Chest Chest palpation & inspection: normal inspection of the chest Resp Effort & Inspection: normal respiratory effort Auscultation: clear to auscultation bilaterally Cardio Rate: regular rate Rhythm: regular rhythm Heart Sounds: S1 normal and S2 normal GI Inspection: normal to inspection and non-distended Palpation: soft and no hepatosplenomegaly Musc Other: gross motor intact no deficits, full bilateral strength Skin General: no rashes or lesions noted Neuro General: patient alert, patient awake, moves all extremities and no focal motor deficits Motor: muscle tone normal throughout Extrem General: normal to inspection and no pedal edema Psych Appearance: grossly normal Mental Status: mental status grossly normal Affect: normal affect Speech and Movement: speech and movement normal Coding Level of Care Code No Charge Diagnoses Sterilization Z30.2 Assessment and Plan Assessment and Plan (1) Sterilization: Status: Acute Comment: title 19 signed 11/20 Plan After discussing the patient's diagnosis and treatment plan options, patient wishes to proceed with surgical management. I have discussed with the patient the risks, benefits, and alternatives of the procedure which include but are not limited to risks of anesthesia, bleeding, infection, possible damage to bowel, bladder, or surrounding vasculature which could lead to additional surgery to evaluate any complications. Patient agrees to procedure and wishes to proceed. ACOG/uptodate references given for additional information regarding procedure. UPDATE- I have seen the patient and performed any clinically relevant updates to the history and physical exam. Sandy Barriga MD
[2023-04-03 14:42] LABS: Internal QC Validated? YES +Cl - CLEAR BKGD; Pregnancy, Urine Negative Negative
[2023-04-03 14:48] VITALS: BP 120/69; PULSE 65; RESP 16; TEMP 36.3; O2SAT 99; BMI 45.8
[2023-04-03] MEDS: Lactated Ringers 1,000 ML 15 ML IV (14:53)
--- NOTE | 2023-04-03 15:40 | FALS_PTH ---
PATIENT: PRECIOUS KIM LOC: [facility] U#:[id number] AGE/SX: 27/F ROOM: RE04/03/[address]: Dr. Sandy Barriga MD : 1995 BED: DIS: 04/03/2023 SPEC #: [id number] RECD: 04/04/23 09:28 STATUS: DEYA WILLIAMS #: [id number] GINA: 04/03/23 15:[address]: Sandy Barriga DEPT: SURGICAL PATHOLOGY RECD BY: Daphne Degroot ENTERED: 04/04/23 09:28 SP TYPE: FALL TUBES OTHR DR: Eusebia Primary Care Phys Tissues: Fallopian tube Procedures: Surgery Specimen Level II HEADER OPERATION: Laparoscopic salpingectomy PRE-OP DIAGNOSIS: Sterilization TISSUE SUBMITTED: Bilateral fallopian tubes MICROSCOPIC DIAGNOSIS Right and left fallopian tubes, bilateral salpingectomies: Complete cross-sections of fallopian tubes with no pathologic change. AM:guille 04/06/2023 MICROSCOPIC DESCRIPTION Slides are reviewed. GROSS DESCRIPTION Received in fixative is one container labeled with the patient's name and designated bilateral fallopian tubes. The specimen consists of two fallopian tubes with an average length of 9.0 cm and has an average diameter of 0.8 cm. Both fallopian tubes have normal fimbriated ends. No mass lesions are identified. Workers' Compensation Commissioner sections are submitted in two cassettes as follows: 1 - one fallopian tube, 2??the other fallopian tube. / AM:guille 04/04/2023 TC:4 CPT: 41431 x2
[2023-04-03] MEDS: Bupivacaine 0.25% 30 ML Vial (17:50)
--- NOTE | 2023-04-03 17:58 | PCM.OPRPT ---
Problems Associated Problem List Diagnoses (1) Sterilization: Report of Operation Date of Procedure: 04/03/23 Pre-Operative Diagnosis: see problem list Post-Operative Diagnosis: same Surgery/Procedure Performed:: laparoscopic bilateral salpingectomy Description of Surgical Findings:: nl uterus tubes ovaries Surgeon: Sandy Barriga Type of Anesthesia: General and Local Specimen's removed: tubes Drains: none Estimated Blood Loss (mL): 50 Fluids Replaced: crystalloid Description of Procedure: Patient was taken in the operating room and was placed under general anesthesia was prepped and draped in normal sterile fashion in the dorsal lithotomy position. Bladder was drained of clear urine and SCDs were on preoperatively. Uterus was sounded and a uterine manipulator was placed after dilating. Attention was then paid to the abdominal portion of the procedure and the umbilicus was elevated with towel clamps and injected with Marcaine and after a 5 mm incision was made and the Veress needle was entered into the abdomen confirmed to be intra-abdominal with a low opening pressure of less than 5 mmHg. Abdomen was insufflated with CO2 gas and a 5 mm optical trocar was placed under direct visualization. A 5 mm port suprapubically was placed under direct visualization. Uterus was well visualized and bilateral fallopian tubes identified and bilateral tubes were elevated and transecting across the mesosalpinx and the attachment to the uterine corpus bilaterally the tubes were removed without complication. Excellent hemostasis was noted. Fallopian tubes were removed through the lower port site without complication. Liver and upper abdomen were visualized notably within normal limits and no other gross abnormalities were seen in the abdomen. All instruments removed from the abdomen after gas was desufflated. Port sites were closed with 3-0 Monocryl Steri's and op sites were applied. All instruments removed from the vagina and patient was awoken and taken recovery in stable condition. Grafts/Implants Used: none Complications none Admit VTE Documentation VTE Present on Admission: No VTE Mechan Device Prophylaxis: SCD's Multi Select Codes Urinary/Genital Urinary/Genital CPT Codes: 17679 Laproscopic BS/O
--- NOTE | 2023-04-03 18:01 | DCINST_ITS ---
Discharge Instructions Diet Discharge Diet: No restrictions Activity Discharge Activity: Return to Normal Activity, May Not Drive (for 2 weeks or while taking narcotic pain meds.), May Shower and May Take a Tub Bath (in 7 days) May resume sexual activity in: 1 week Weight Bearing Status: Full weight bearing Dressing / Incision Call your doctor if your incision/area has: Continuous Slow Oozing, Sudden Increased Bleeding, Increased Pain/ Swelling, Increased Redness and Foul Smelling Discharge Call your doctor if you observe: Fever of 101 or Higher, Using more than 1 pad per hour, Shortness of breath, Chest pain and Uncontrolled pain Suture Line Care: Avoid Pulling/Pushing and Avoid Pinching/Bending Remove Dressing in: 1 week (if present) Cleanse incision/area with: Soap & Water and Keep Dressing Clean & Dry Follow Up Care When: Call to make an appointment with your doctor for a fu/incision check in 1- 2 weeks. Test Results: Test results from this visit will be discussed in further detail at your follow- up appointment, if applicable. Discharge Plan Admission Attending Provider: Sandy Barriga Primary Care Provider: Care Physician,Eusebia Primary Discharge Orders/Prescriptions Prescriptions: No Action NK Referrals / Follow Up: Care Physician,No Primary [Primary Care Provider] -
[2023-04-03 18:09] VITALS: BP 120/69; BP 142/87; PULSE 60; RESP 16; TEMP 36.5; O2SAT 100
[2023-04-03 18:15] VITALS: BP 120/69; BP 129/76; PULSE 55; RESP 16; O2SAT 98
[2023-04-03 18:30] VITALS: BP 118/69; BP 120/69; PULSE 47; RESP 16; O2SAT 100
--- NOTE | 2023-04-03 18:37 | SUR.PHASEI ---
JODI CHACON RN PICKED UP PT PRESCRIPTION FROM PHARMACY AND HAND DELIVERED IT TO PT
[2023-04-03 18:41] VITALS: BP 120/69; BP 131/69; PULSE 48; RESP 16; TEMP 36.6; O2SAT 100
[2023-04-03 18:48] VITALS: BP 120/69
== END 2023-04-03 19:14 | disposition home or self-care (01) ==
LOC: SDC 14:07 → AC 14:07
PROVIDERS: Anesthesiology; Referring Provider Obstetrics & Gynecology; Visit Provider Obstetrics & Gynecology
PROC: (CPT 58661; principal; 2023-04-03 15:25)
DX: Z30.2 Encounter for sterilization (principal); N96 Recurrent pregnancy loss; F17.210 Nicotine dependence, cigarettes, uncomplicated
CPT/HCPCS: 58661; 00840; 36415; 81025; 85027; 86850; 86900; 86901; 88302; J7120; J2405